=== PATIENT | female | born 1970 | race Caucasian/White ===

== ENCOUNTER → 2016-07-08 | Outpatient (CLI) | payer OTHER ==
[2016-07-08 10:42] LABS: Basophils % (A) 1 %; CH 31.6; Eosinophils # (A) 0.2 k/uL (0-0.7); Eosinophils % (A) 4 %; HCT 41.8 % (34.0-46.0); HDW 2.17; HGB 13.7 gm/dL (11.4-16.0); Luc # (Auto) 0.15; Luc % (Auto) 3; Lymphocytes # (A) 1.2 k/uL (1.0-4.8); Lymphocytes % (A) 24 %; MCH 31.6 pg (25.0-35.0); MCHC 32.9 g/dL (31.0-37.0); MCV 96.1 fL (80.0-100.0); Mean Platelet Volume 7.7; Monocytes # (A) 0.3 k/uL (0-1.0); Monocytes % (A) 6 %; Neutrophils # (A) 3.2 k/uL (1.3-7.7); Neutrophils % (A) 62 %; RBC 4.35 m/uL (3.80-5.40); RDW 13.2 % (11.5-15.5); WBC 5.1 k/uL (3.8-10.6); WBC (Perox) 5.55
[2016-07-08 11:19] LABS: Appearance,Urine Clear (Clear); Bilirubin,Urine Negative (Negative); Glucose,Urine (UA) Negative (Negative); Ketones,Urine 1+ (Negative); Leukocyte Esterase,Urine Negative (Negative); Nitrite,Urine Negative (Negative); Protein,Urine Negative (Negative); Specific Gravity,Urine 1.016 (1.001-1.035); UA Billing (MACRO vs. MICRO) CHEM; Urobilinogen,Urine <2.0 mg/dL (<2.0)
[2016-07-08 11:29] LABS: ALT 32 U/L (9-52); AST 25 U/L (14-36); Anion Gap 10 mmol/L; Blood Urea Nitrogen 13 mg/dL (7-17); Carbon Dioxide 25 mmol/L (22-30); Chloride 105 mmol/L (98-107); Cholesterol 207 mg/dL (<200); Follicle Stimulating Hormone 3.4 mIU/mL; Glucose 84 mg/dL (74-99); HDL Cholesterol 65 mg/dL (40-60); Non-African American GFR(MDRD) >60 (>60 ml/min/1.73 sqM); Potassium 4.2 mmol/L (3.5-5.1); Sodium 140 mmol/L (137-145); Triglycerides 59 mg/dL (<150)
[2016-07-08 11:45] LABS: Estradiol 114 pg/mL
== END | disposition home or self-care (01) ==
LOC: LABWHC1 09:10
PROVIDERS: ATTEND Family Medicine
DX: Z01.818 Encounter for other preprocedural examination (principal); N91.2 Amenorrhea, unspecified; E78.5 Hyperlipidemia, unspecified; J30.9 Allergic rhinitis, unspecified
CPT/HCPCS: 36415; 80048; 80061; 81003; 82306; 82670; 83001; 84450; 84460; 85025

== ENCOUNTER → 2016-12-26 | Outpatient (CLI) | payer OTHER ==
--- NOTE | 2016-12-29 11:07 | MM ---
Reason for exam: history of breast augmentation, asymptomatic. Last mammogram was performed 1 year and 5 months ago. History: Family history of breast cancer in 2 maternal cousins at age 48. Saline implants in both breasts, February 2006. Took hormonal contraceptives for 8 years beginning at age 16. Physical Findings: A clinical breast exam by your physician is recommended on an annual basis and results should be correlated with mammographic findings. MG Screening Mammo Implant/CAD Bilateral CC, MLO, and ID view(s) were taken. Prior study comparison: August 06, 2015, bilateral MG screening mammo implant/CAD. May 30, 2014, bilateral MG diagnostic mammo w CAD SYDNEE. May 12, 2013, CAD bilateral diagnostic mammogram. There are scattered fibroglandular densities. No significant changes when compared with prior studies. ASSESSMENT: Benign, BI-RAD 2 RECOMMENDATION: Routine screening mammogram of both breasts in 1 year.
== END | disposition home or self-care (01) ==
LOC: RADMAMWWP 12:44
PROVIDERS: ATTEND Obstetrics & Gynecology
DX: Z12.31 Encounter for screening mammogram for malignant neoplasm of breast (principal)

== ENCOUNTER → 2017-11-30 | Outpatient (CLI) | payer OTHER | END | disposition home or self-care (01) | LOC: LABWHC1 13:15 | PROVIDERS: ATTEND Obstetrics & Gynecology | DX: N91.2 Amenorrhea, unspecified (principal) | CPT/HCPCS: 36415; 82670; 83001; 83002; 84146 ==

== ENCOUNTER → 2018-05-07 | Outpatient (CLI) | payer OTHER ==
--- NOTE | 2018-05-13 16:40 | MM ---
Reason for exam: screening (asymptomatic). Last mammogram was performed 1 year and 4 months ago. History: Family history of breast cancer in 2 maternal cousins at age 48. Saline implants in both breasts, February 2006. Took hormonal contraceptives for 8 years beginning at age 16. MG 3D Screen Mammo Imp/Cad Bilateral CC, MLO, and ID view(s) were taken. Prior study comparison: December 26, 2016, bilateral MG screening mammo implant/CAD. August 06, 2015, bilateral MG screening mammo implant/CAD. The breast tissue is heterogeneously dense. This may lower the sensitivity of mammography. There is benign left breast calcifications. No discrete abnormality. Bilateral symmetrical implants redemonstrated. ASSESSMENT: Benign, BI-RAD 2 RECOMMENDATION: Routine screening mammogram of both breasts in 1 year.
== END | disposition home or self-care (01) ==
LOC: RADMAMWWP 12:43
PROVIDERS: ATTEND Obstetrics & Gynecology
DX: Z12.31 Encounter for screening mammogram for malignant neoplasm of breast (principal)
CPT/HCPCS: 77063; 77067

== ENCOUNTER 2018-06-03 16:49 | Inpatient (IN) | payer OTHER ==
[2018-06-03] MEDS ORDERED: IBUPROFEN 600 MG TAB PO STA (19:07)
[2018-06-03] MEDS ORDERED: SODIUM CHLORIDE 0.9% 1,000 ML IV ONE (19:07)
[2018-06-03] MEDS ORDERED: ACETAMINOPHEN TAB 500 MG TAB PO STA (19:07)
--- NOTE | 2018-06-03 19:10 | ED ---
Fever HPI - General Chief Complaint: Fever Stated Complaint: fever Time Seen by Provider: 06/03/18 18:51 Source: patient, RN notes reviewed, old records reviewed Mode of arrival: ambulatory Limitations: no limitations - History of Present Illness Initial Comments: Patient is a 47-year-old female presents emergency Department stay for evaluation of persistent fevers. She has had intermittent upper respiratory symptoms including cough and congestion since January. She has been on multiple rounds of antibiotics. She was initially on doxycycline in January, rounds of steroids. She recently finished a 20 day course of Levaquin. She finished his antibiotics 3 days ago. She presents today again with fevers and reports that her cough has improved. 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 She states that she has followed up with Dr. Taylor regards to her chronic cough. She is otherwise healthy. Nonsmoker. - Related Data Home Medications Medication Instructions Recorded Confirmed Acetaminophen [Tylenol Extra 500 mg PO Q6HR PRN 06/03/18 06/03/18 Strength] Omeprazole 20 mg PO DAILY 06/03/18 06/03/18 predniSONE 5 mg PO DAILY 06/03/18 06/03/18 Allergies Allergy/AdvReac Type Severity Reaction Status Date / Time cephalexin [From Keflex] Allergy Rash/Hives Verified 06/03/18 19:06 codeine AdvReac Vomiting Verified 06/03/18 19:06 Review of Systems ROS Statement: Those systems with pertinent positive or pertinent negative responses have been documented in the HPI. ROS Other: All systems not noted in ROS Statement are negative. Past Medical History Additional Past Medical History / Comment(s): migraines History of Any Multi-Drug Resistant Organisms: None Reported Past Surgical History: Tonsillectomy Additional Past Surgical History / Comment(s): bladder sling, breast implants Past Psychological History: No Psychological Hx Reported Smoking Status: Never smoker Past Alcohol Use History: Occasional Past Drug Use History: None Reported General Exam - General Exam Comments Initial Comments: 47-year-old female. Alert and oriented 3. Patient appears in no significant distress. Limitations: no limitations General appearance: alert, in no apparent distress Head exam: Present: atraumatic, normocephalic, normal inspection Eye exam: Present: normal appearance, PERRL, EOMI. Absent: scleral icterus, conjunctival injection, periorbital swelling ENT exam: Present: normal exam, mucous membranes moist Neck exam: Present: normal inspection. Absent: tenderness, meningismus, lymphadenopathy Respiratory exam: Present: normal lung sounds bilaterally. Absent: respiratory distress, wheezes, rales, rhonchi, stridor Cardiovascular Exam: Present: regular rate, normal rhythm, normal heart sounds. Absent: systolic murmur, diastolic murmur, rubs, gallop, clicks GI/Abdominal exam: Present: soft, normal bowel sounds. Absent: distended, tenderness, guarding, rebound, rigid Extremities exam: Present: normal inspection, full ROM, normal capillary refill. Absent: tenderness, pedal edema, joint swelling, calf tenderness Back exam: Present: normal inspection Neurological exam: Present: alert, oriented X3, CN II-XII intact Psychiatric exam: Present: normal affect, normal mood Skin exam: Present: warm, dry, intact, normal color. Absent: rash Course Vital Signs 06/03/18 06/03/18 06/03/18 17:21 19:45 20:55 Temperature 100 F H 101.8 F H 100.2 F H Pulse Rate 118 H 103 H 103 H Respiratory 16 18 18 Rate Blood Pressure 139/86 118/90 102/58 O2 Sat by Pulse 97 97 93 L Oximetry 06/03/18 21:56 Temperature 100.1 F H Pulse Rate 92 Respiratory 18 Rate Blood Pressure 125/68 O2 Sat by Pulse 94 L Oximetry Medical Decision Making - Medical Decision Making Patient is a 47-year-old female percent saturation arms today with prolonged fever since January. Patient has been on multiple rounds antibiotics including doxycycline and Levaquin. At this time Patient has normal chest x-ray and negative influenza testing. Lab work was reviewed. She has been on steroids and her she does have some leukocytosis noted white blood cell count 35,000. I do not know patient's leukocytosis is related to steroids or possibility of infection. She had a fever 101.2. She finished Levaquin 3 days ago this was given to her by Dr. Taylor. At this time Patient will be admitted for workup. Infectious disease. Diamond. Discussed the case with Dr. Duran. - Lab Data Result diagrams: 06/03/18 19:37 06/03/18 19:37 Lab Results 06/03/18 06/03/18 06/03/18 Range/Units 19:37 19:37 19:37 WBC 35.7 H (3.8-10.6) k/uL RBC 4.59 (3.80-5.40) m/uL Hgb 14.2 (11.4-16.0) gm/dL Hct 43.0 (34.0-46.0) % MCV 93.5 (80.0-100.0) fL MCH 30.9 (25.0-35.0) pg MCHC 33.1 (31.0-37.0) g/dL RDW 13.8 (11.5-15.5) % Plt Count 329 (150-450) k/uL Neutrophils % (Manual) 78 % Band Neutrophils % 5 % Lymphocytes % (Manual) 10 % Monocytes % (Manual) 8 % Eosinophils % (Manual) 1 % Neutrophils # (Manual) 29.60 H (1.3-7.7) k/uL Lymphocytes # (Manual) 3.57 (1.0-4.8) k/uL Monocytes # (Manual) 2.86 H (0-1.0) k/uL Eosinophils # (Manual) 0.36 (0-0.7) k/uL Nucleated RBCs 0 (0-0) /100 WBC Manual Slide Review Performed Toxic Granulation Present Toxic Vacuolation Present D-Dimer (<0.60) mg/L FEU Sodium 137 (137-145) mmol/L Potassium 4.4 (3.5-5.1) mmol/L Chloride 100 (98-107) mmol/L Carbon Dioxide 25 (22-30) mmol/L Anion Gap 12 mmol/L BUN 13 (7-17) mg/dL Creatinine 0.68 (0.52-1.04) mg/dL Est GFR (CKD-EPI)AfAm >90 (>60 ml/min/1.73 sqM) Est GFR (CKD-EPI)NonAf >90 (>60 ml/min/1.73 sqM) Glucose 98 (74-99) mg/dL Plasma Lactic Acid Renzo (0.7-2.0) mmol/L Calcium 9.6 (8.4-10.2) mg/dL Total Bilirubin 1.3 (0.2-1.3) mg/dL AST 27 (14-36) U/L ALT 29 (9-52) U/L Alkaline Phosphatase 90 (38-126) U/L Total Protein 7.8 (6.3-8.2) g/dL Albumin 4.6 (3.5-5.0) g/dL Urine Color Urine Appearance (Clear) Urine pH (5.0-8.0) Ur Specific [place] (1.001-1.035) Urine Protein (Negative) Urine Glucose (UA) (Negative) Urine Ketones (Negative) Urine Blood (Negative) Urine Nitrite (Negative) Urine Bilirubin (Negative) Urine Urobilinogen (<2.0) mg/dL Ur Leukocyte Esterase (Negative) Urine RBC (0-5) /hpf Ur Squamous Epith Cells (0-4) /hpf Urine Mucus (None) /hpf Influenza Type A RNA Not Detected (Not Detectd) Influenza Type B (PCR) Not Detected (Not Detectd) RSV (PCR) (Negative) 06/03/18 06/03/18 06/03/18 Range/Units 19:37 19:37 19:37 WBC (3.8-10.6) k/uL RBC (3.80-5.40) m/uL Hgb (11.4-16.0) gm/dL Hct (34.0-46.0) % MCV (80.0-100.0) fL MCH (25.0-35.0) pg MCHC (31.0-37.0) g/dL RDW (11.5-15.5) % Plt Count (150-450) k/uL Neutrophils % (Manual) % Band Neutrophils % % Lymphocytes % (Manual) % Monocytes % (Manual) % Eosinophils % (Manual) % Neutrophils # (Manual) (1.3-7.7) k/uL Lymphocytes # (Manual) (1.0-4.8) k/uL Monocytes # (Manual) (0-1.0) k/uL Eosinophils # (Manual) (0-0.7) k/uL Nucleated RBCs (0-0) /100 WBC Manual Slide Review Toxic Granulation Toxic Vacuolation D-Dimer 0.20 (<0.60) mg/L FEU Sodium (137-145) mmol/L Potassium (3.5-5.1) mmol/L Chloride (98-107) mmol/L Carbon Dioxide (22-30) mmol/L Anion Gap mmol/L BUN (7-17) mg/dL Creatinine (0.52-1.04) mg/dL Est GFR (CKD-EPI)AfAm (>60 ml/min/1.73 sqM) Est GFR (CKD-EPI)NonAf (>60 ml/min/1.73 sqM) Glucose (74-99) mg/dL Plasma Lactic Acid Renzo 1.7 (0.7-2.0) mmol/L Calcium (8.4-10.2) mg/dL Total Bilirubin (0.2-1.3) mg/dL AST (14-36) U/L ALT (9-52) U/L Alkaline Phosphatase (38-126) U/L Total Protein (6.3-8.2) g/dL Albumin (3.5-5.0) g/dL Urine Color Light Yellow Urine Appearance Cloudy H (Clear) Urine pH 8.0 (5.0-8.0) Ur Specific [place] 1.013 (1.001-1.035) Urine Protein Negative (Negative) Urine Glucose (UA) Negative (Negative) Urine Ketones Negative (Negative) Urine Blood Negative (Negative) Urine Nitrite Negative (Negative) Urine Bilirubin Negative (Negative) Urine Urobilinogen <2.0 (<2.0) mg/dL Ur Leukocyte Esterase Negative (Negative) Urine RBC 1 (0-5) /hpf Ur Squamous Epith Cells <1 (0-4) /hpf Urine Mucus Rare H (None) /hpf Influenza Type A RNA (Not Detectd) Influenza Type B (PCR) (Not Detectd) RSV (PCR) (Negative) 06/03/18 Range/Units 20:15 WBC (3.8-10.6) k/uL RBC (3.80-5.40) m/uL Hgb (11.4-16.0) gm/dL Hct (34.0-46.0) % MCV (80.0-100.0) fL MCH (25.0-35.0) pg MCHC (31.0-37.0) g/dL RDW (11.5-15.5) % Plt Count (150-450) k/uL Neutrophils % (Manual) % Band Neutrophils % % Lymphocytes % (Manual) % Monocytes % (Manual) % Eosinophils % (Manual) % Neutrophils # (Manual) (1.3-7.7) k/uL Lymphocytes # (Manual) (1.0-4.8) k/uL Monocytes # (Manual) (0-1.0) k/uL Eosinophils # (Manual) (0-0.7) k/uL Nucleated RBCs (0-0) /100 WBC Manual Slide Review Toxic Granulation Toxic Vacuolation D-Dimer (<0.60) mg/L FEU Sodium (137-145) mmol/L Potassium (3.5-5.1) mmol/L Chloride (98-107) mmol/L Carbon Dioxide (22-30) mmol/L Anion Gap mmol/L BUN (7-17) mg/dL Creatinine (0.52-1.04) mg/dL Est GFR (CKD-EPI)AfAm (>60 ml/min/1.73 sqM) Est GFR (CKD-EPI)NonAf (>60 ml/min/1.73 sqM) Glucose (74-99) mg/dL Plasma Lactic Acid Renzo (0.7-2.0) mmol/L Calcium (8.4-10.2) mg/dL Total Bilirubin (0.2-1.3) mg/dL AST (14-36) U/L ALT (9-52) U/L Alkaline Phosphatase (38-126) U/L Total Protein (6.3-8.2) g/dL Albumin (3.5-5.0) g/dL Urine Color Urine Appearance (Clear) Urine pH (5.0-8.0) Ur Specific [place] (1.001-1.035) Urine Protein (Negative) Urine Glucose (UA) (Negative) Urine Ketones (Negative) Urine Blood (Negative) Urine Nitrite (Negative) Urine Bilirubin (Negative) Urine Urobilinogen (<2.0) mg/dL Ur Leukocyte Esterase (Negative) Urine RBC (0-5) /hpf Ur Squamous Epith Cells (0-4) /hpf Urine Mucus (None) /hpf Influenza Type A RNA (Not Detectd) Influenza Type B (PCR) (Not Detectd) RSV (PCR) Negative (Negative) Disposition Clinical Impression: Fever, unknown origin, Leukocytosis, Fatigue Disposition: ADMITTED IP TO THIS [facility] Condition: Stable Is patient prescribed a controlled substance at d/c from ED?: No Referrals: Neftaly Cesar DO [Primary Care Provider] - 1-2 days Time of Disposition: 21:59
[2018-06-03 19:56] LABS: HGB 14.2 gm/dL (11.4-16.0); MCH 30.9 pg (25.0-35.0); MCHC 33.1 g/dL (31.0-37.0); MCV 93.5 fL (80.0-100.0); Mean Platelet Volume 7.8; Platelet Count 329 k/uL (150-450); RBC 4.59 m/uL (3.80-5.40); RDW 13.8 % (11.5-15.5); WBC 35.7 k/uL (3.8-10.6)
[2018-06-03 20:06] LABS: Appearance,Urine Cloudy (Clear); Bilirubin,Urine Negative (Negative); Blood,Urine Negative (Negative); Color,Urine Light Yellow; Glucose,Urine (UA) Negative (Negative); Ketones,Urine Negative (Negative); Leukocyte Esterase,Urine Negative (Negative); Mucus,Urine Rare /hpf; Nitrite,Urine Negative (Negative); Protein,Urine Negative (Negative); RBC,Urine 1 /hpf (0-5); Specific Gravity,Urine 1.013 (1.001-1.035); Squamous Epithelial Cell,Urine <1 /hpf (0-4); Urobilinogen,Urine <2.0 mg/dL (<2.0)
[2018-06-03 20:07] LABS: ALT 29 U/L (9-52); AST 27 U/L (14-36); Albumin 4.6 g/dL (3.5-5.0); Alkaline Phosphatase 90 U/L (38-126); Anion Gap 12 mmol/L; Blood Urea Nitrogen 13 mg/dL (7-17); Calcium 9.6 mg/dL (8.4-10.2); Carbon Dioxide 25 mmol/L (22-30); Chloride 100 mmol/L (98-107); Glucose 98 mg/dL (74-99); Potassium 4.4 mmol/L (3.5-5.1); Sodium 137 mmol/L (137-145); Total Bilirubin 1.3 mg/dL (0.2-1.3); Total Protein 7.8 g/dL (6.3-8.2)
[2018-06-03 20:17] LABS: Band Neutrophils % 5 %; Eosinophils # (M) 0.36 k/uL (0-0.7); Lymphocytes # (M) 3.57 k/uL (1.0-4.8); Monocytes # (M) 2.86 k/uL (0-1.0); Neutrophils % (M) 78 %; Nucleated Red Blood Cells 0 /100 WBC (0-0); Total Cells Counted 200; Toxic Granulation Present
[2018-06-03 20:18] LABS: Toxic Vacuolation Present
--- NOTE | 2018-06-03 20:22 | XR ---
EXAMINATION TYPE: XR chest 2V DATE OF EXAM: 06/03/2018 COMPARISON: NONE HISTORY: Fever TECHNIQUE: Frontal and lateral views of the chest are obtained. FINDINGS: Heart and mediastinum are normal. Lungs are clear. Diaphragm is normal. Bony thorax appear s normal. IMPRESSION: Normal chest.
[2018-06-03] MEDS ORDERED: PIPERACILLIN-TAZOBACTAM 3.375 GM in SODIUM CHLORIDE 0.9% 100 ML IVPB STA (21:38)
[2018-06-03] MEDS: SODIUM CHLORIDE 0.9% 1,000 ML IV SCH (21:55)
[2018-06-03] MEDS ORDERED: oxyCODONE-APAP 5-325MG 1 EACH TAB PO PRN (21:59)
[2018-06-03] MEDS ORDERED: KETOROLAC 30 MG/ML 1 ML VIAL IVP PRN (21:59)
[2018-06-03] MEDS ORDERED: NALOXONE 0.4 MG/ML 1 ML VIAL IV PRN (21:59)
[2018-06-03] MEDS ORDERED: ACETAMINOPHEN TAB 325 MG TAB PO PRN (21:59)
[2018-06-03] MEDS ORDERED: ONDANSETRON 4 MG/2 ML VIAL IVP PRN (21:59)
[2018-06-03] MEDS ORDERED: IBUPROFEN 400 MG TAB PO PRN (21:59)
[2018-06-04] MEDS ORDERED: PIPERACILLIN-TAZOBACTAM 3.375 GM in SODIUM CHLORIDE 0.9% 100 ML IVPB SCH (06:00)
[2018-06-04 07:38] LABS: C Reactive Protein 151.6 mg/L (<10.0)
--- NOTE | 2018-06-04 08:12 | HP ---
HISTORY AND PHYSICAL DATE OF SERVICE: 06/04/2018 CHIEF COMPLAINT: Fever. HISTORY OF PRESENT ILLNESS: This 47-year-old woman with a past medical history of migraines, tonsillectomy, bladder sling, breast implants being followed by Dr. Cesar in the outpatient setting, was complaining of fever for the past several weeks. Initially the patient had fever, night sweats. The patient was evaluated by Dr. Cesar and subsequently Dr. Jesus. Patient had just recently completed a course of Levaquin about 3 weeks and 20 days of steroids. The patient is feeling better on antibiotics and steroids, but subsequently initially the patient also had some cough, but after stopping the antibiotics and Levaquin. The patient had fever, which is intermittent in character and the patient came to [facility] and admitted for further evaluation. White count is elevated possibly secondary to steroids at this time. The patient initially had doxycycline. There is no history of any ingestion of unusual food or any travel in contact with pets or any sick individuals at this time. The patient did go to [place] [facility] Currently the monocytes are 2.86 and neutrophils at 29.6. There is no history of any headache , loss of consciousness or seizures at this time. Influenza and RSV is negative. A chest x- ray was also done which showed no acute abnormality. The patient also complaining of significant night sweats also. Initially, the patient had right sided chest pain also. PAST MEDICAL HISTORY: History of migraine, history of tonsillectomy, bladder sling. MEDICATIONS: Home medications are: 1. Prednisone 5 mg daily. 2. Omeprazole 20 mg daily. 3. Tylenol 500 mg q.6 p.r.n. ALLERGIES: Allergies are KEFLEX and CODEINE. FAMILY HISTORY: History of asthma and COPD. 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 Occasional alcohol. No history of smoking. REVIEW OF SYSTEMS: ENT: No diminished hearing or diminished vision. CARDIOVASCULAR SYSTEM: No angina. RESPIRATORY SYSTEM: As mentioned earlier. GI: No nausea or vomiting. : No dysuria. NERVOUS SYSTEM: No numbness or weakness. ALLERGY/IMMUNOLOGY: No history of asthma. MUSCULOSKELETAL: As mentioned earlier. HEMATOLOGY/ONCOLOGY: No history anemia. ENDOCRINE: No history of diabetes or hypothyroidism. CONSTITUTIONAL: As mentioned earlier. DERMATOLOGY: Negative. RHEUMATOLOGY: Negative. PSYCHIATRY: As mentioned earlier. PHYSICAL EXAMINATION: Patient is alert and oriented x3. Pulse is 93, blood pressure 121/74, respiration 18, temperature 98.8, T-max 100.2, pulse ox 94% on room air. HEENT: Conjunctivae normal. Oral mucosa moist. Neck is no jugular venous distention. No carotid bruit. No lymph node enlargement. CARDIOVASCULAR: S1, S2 muffled. No S3, no S4. RESPIRATORY: Breath sounds diminished at bases. A few scattered rhonchi. No crackles. ABDOMEN: Soft, nontender. No mass palpable. No ascites. Bowel sounds present. LEGS: No edema. No swelling. NERVOUS SYSTEM: Higher functions as mentioned earlier. Moves all 4 limbs. No focal motor deficits. LYMPHATICS: No lymphadenopathy of the neck, axillae or groin. SKIN: No ulcer, rash or bleeding. JOINTS: No active deforming arthropathy. LABS: Labs on admission is WBC 35.7, neutrophils 29.6. UA noted. ASSESSMENT: 1. Fever of unknown origin for evaluation. 2. Increased WBC, possibly secondary to steroids. 3. History of migraines. 4. History of bladder sling. 5. FULL CODE. RECOMMENDATIONS AND DISCUSSION: This 47-year-old woman presented with multiple complex medical issues, we will monitor the patient closely. Obtain the blood cultures. We will consult Pulmonary and Infectious Disease. Otherwise, I would also continue to monitor. A detailed workup for the fever protocol will be ordered. See orders for details. Further recommendations to follow. Prognosis guarded. Discussed with the family at length. A copy of dictation forwarded to Dr. Cesar who is the primary physician. MMMAE / RALPHN: [id number] / MTDD
[2018-06-04] MEDS ORDERED: NON-FORMULARY DRUG (Omeprazole [Omeprazole] 20 MG) PO SCH (09:00)
[2018-06-04] MEDS ORDERED: PANTOPRAZOLE 40 MG/10 ML VIAL IV SCH (09:00)
[2018-06-04] MEDS: IOPAMIDOL-300 CONTRAST 30 ML VIAL (ORAL USE) PO PRN ×2 (10:00→11:07)
[2018-06-04 10:24] LABS: Appearance,Urine Clear (Clear); Bilirubin,Urine Negative (Negative); Blood,Urine Negative (Negative); Color,Urine Light Yellow; Glucose,Urine (UA) Negative (Negative); Ketones,Urine Negative (Negative); Leukocyte Esterase,Urine Negative (Negative); Nitrite,Urine Negative (Negative); Protein,Urine Negative (Negative); Specific Gravity,Urine 1.006 (1.001-1.035); Urobilinogen,Urine <2.0 mg/dL (<2.0)
[2018-06-04] MEDS: SODIUM CHLORIDE 0.9% 1,000 ML IV SCH ×2 (11:06→21:47)
[2018-06-04 11:15] LABS: Rheumatoid Factor 11 IU/mL (0-15)
--- NOTE | 2018-06-04 12:24 | P.CONS ---
History of Present Illness - Reason for Consult Consult date: 06/04/18 Fever unknown, multiple antibiotics - History of Present Illness This is a 47-year-old female gives history of starting a and January 2018 at which time she had a dry nonproductive cough body aches and joint aches and fever. There was concern for pneumonia although she states the x-ray was negative and she was placed on doxycycline which she completed at that time and her symptoms resolved. Since then, she has had a fever about every other week and takes Motrin and Tylenol for the fever and it usually resolves within a day. If she does not take Motrin or Tylenol the fever persists. She recently saw Dr. Aguilar about 3 weeks ago and was placed on Levaquin which she finished and then developed 3-4 days after symptoms returned. She was also on a steroid taper for 20 days. 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 She did travel to [place] last June but otherwise no significant travel. They have a dog and 2 cats in the home. She gardens in the summer otherwise no unusual hobbies. No other animal exposures. She denies any sick contacts. Patient came into the clinic in [facility] emergency center where she was found to have a temperature of 101.8 and white count 35.7, creatinine 0.68. ESR 13, d-dimer 0.2, C-reactive protein 151.6. Urinalysis was negative for infection, influenza testing negative, RSV negative , chest x-ray and normal. In the ER, patient was given Tylenol, Motrin, 1 L of IV fluids and started on Zosyn and [facility]. Patient states that she has been feeling better today from yesterday and she has been afebrile since 2300 last night. The following tests are pending: Echocardiogram , CT of the brain, CT of the chest abdomen and pelvis, JOSE, P-ANCA and C-ANCA, Lyme, rheumatoid factor, urine culture. Blood culture has status receded. Sputum cultures are obtained due to lack of sputum production. Review of Systems All systems: negative Constitutional: Reports chills, Reports fatigue, Reports fever, Reports malaise , Reports poor appetite, Reports sweats, Reports weakness Eyes: denies blurred vision, denies pain Ears, nose, mouth and throat: Denies dysphagia, Denies headache, Denies hoarseness, Denies sore throat, Denies vertigo Cardiovascular: Denies chest pain, Denies decreased exercise tolerance, Denies dyspnea on exertion, Denies edema, Denies leg edema, Denies shortness of breath , Denies syncope Respiratory: Reports cough, Denies cough with sputum, Denies dyspnea, Denies excessive sputum, Denies hemoptysis, Denies home oxygen, Denies wheezing Gastrointestinal: Denies abdominal pain, Denies diarrhea, Denies loss of appetite, Denies melena, Denies nausea, Denies vomiting Genitourinary: Denies dysuria, Denies hematuria, Denies urgency, Denies urinary frequency Musculoskeletal: Reports myalgias, Denies frequent falls, Denies gait dysfunction, Denies hot joints, Denies muscle weakness, Denies neck stiffness Integumentary: Denies boils, Denies foot/leg ulcers, Denies lesions, Denies pruritus, Denies rash, Denies sores, Denies wounds Neurological: Denies aphasia, Denies change in mentation, Denies change in speech, Denies double vision, Denies gait dysfunction, Denies head injury, Denies headaches, Denies numbness, Denies seizures, Denies vertigo, Denies weakness Psychiatric: Denies anxiety, Denies depression Endocrine: Denies fatigue, Denies weight change Past Medical History Additional Past Medical History / Comment(s): migraines History of Any Multi-Drug Resistant Organisms: None Reported Past Surgical History: Tonsillectomy Additional Past Surgical History / Comment(s): bladder sling, breast implants Past Psychological History: No Psychological Hx Reported Smoking Status: Never smoker Past Alcohol Use History: Occasional Additional Past Alcohol Use History / Comment(s): Patient is a lifelong nonsmoker, no illicit drug use, occasional alcohol use. Patient was at home with her . 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 She denies any recent travel but did go to [place] last June. There is a dog and 2 cats in the home. She enjoys gardening. Past Drug Use History: None Reported - Past Family History Mother Family Medical History: Asthma, COPD Medications and Allergies Home Medications Medication Instructions Recorded Confirmed Type Acetaminophen [Tylenol Extra 500 mg PO Q6HR PRN 06/03/18 06/03/18 History Strength] Omeprazole 20 mg PO DAILY 06/03/18 06/03/18 History predniSONE 5 mg PO DAILY 06/03/18 06/03/18 History Allergies Allergy/AdvReac Type Severity Reaction Status Date / Time cephalexin [From Keflex] Allergy Rash/Hives Verified 06/03/18 19:06 codeine AdvReac Vomiting Verified 06/03/18 19:06 Physical Exam Vitals: Vital Signs Temp Pulse Pulse Resp BP BP Pulse Ox 06/04/18 07:00 98.7 F 83 16 101/67 92 L 06/04/18 03:30 16 06/03/18 23:55 18 06/03/18 23:40 98.8 F 93 18 121/74 94 L 06/03/18 23:04 98.6 F 88 18 114/68 96 06/03/18 21:56 100.1 F H 92 18 125/68 94 L 06/03/18 20:55 100.2 F H 103 H 18 102/58 93 L 06/03/18 19:45 101.8 F H 103 H 18 118/90 97 06/03/18 17:21 100 F H 118 H 16 139/86 97 Intake and Output 06/03/18 06/04/18 06/04/18 22:59 06:59 14:59 Other: Voiding Method Toilet Toilet Weight 61.235 kg Gen: This is a 47-year-old female. She is resting in bed appears to be comfortable and in no acute distress. HEENT: Head is atraumatic, normocephalic. Pupils equal, round. Sclerae is anicteric. Conjunctiva pink. Mucous members of the mouth are moist. Oropharyngeal shows no erythema or edema. NECK: Supple. No JVD. No lymphadenopathy. No thyromegaly. LUNGS: Clear to auscultation. No wheezes or rhonchi. No intercostal retractions. HEART: Regular rate and rhythm. No murmur. ABDOMEN: Soft. Bowel sounds are present. No masses. No tenderness. EXTREMITIES: No pedal edema. No calf tenderness. Dorsalis pedis is +2 bilaterally. No rashes. NEUROLOGICAL: Patient is awake, alert and oriented x3. Cranial nerves 2 through 12 are grossly intact. Results Results: Laboratory Results WBC 35.7 k/uL (3.8-10.6) H 06/03/18 19:37 RBC 4.59 m/uL (3.80-5.40) 06/03/18 19:37 Hgb 14.2 gm/dL (11.4-16.0) 06/03/18 19:37 Hct 43.0 % (34.0-46.0) 06/03/18 19:37 MCV 93.5 fL (80.0-100.0) 06/03/18 19:37 MCH 30.9 pg (25.0-35.0) 06/03/18 19:37 MCHC 33.1 g/dL (31.0-37.0) 06/03/18 19:37 RDW 13.8 % (11.5-15.5) 06/03/18 19:37 Plt Count 329 k/uL (150-450) 06/03/18 19:37 Neutrophils % (Manual) 78 % 06/03/18 19:37 Band Neutrophils % 5 % 06/03/18 19:37 Lymphocytes % (Manual) 10 % 06/03/18 19:37 Monocytes % (Manual) 8 % 06/03/18 19:37 Eosinophils % (Manual) 1 % 06/03/18 19:37 Neutrophils # (Manual) 29.60 k/uL (1.3-7.7) H 06/03/18 19:37 Lymphocytes # (Manual) 3.57 k/uL (1.0-4.8) 06/03/18 19:37 Monocytes # (Manual) 2.86 k/uL (0-1.0) H 06/03/18 19:37 Eosinophils # (Manual) 0.36 k/uL (0-0.7) 06/03/18 19:37 Nucleated RBCs 0 /100 WBC (0-0) 06/03/18 19:37 Manual Slide Review Performed 06/03/18 19:37 Toxic Granulation Present 06/03/18 19:37 Toxic Vacuolation Present 06/03/18 19:37 ESR 13 mm/hr (0-20) 06/04/18 06:55 D-Dimer 0.20 mg/L FEU (<0.60) 06/03/18 19:37 Sodium 137 mmol/L (137-145) 06/03/18 19:37 Potassium 4.4 mmol/L (3.5-5.1) 06/03/18 19:37 Chloride 100 mmol/L (98-107) 06/03/18 19:37 Carbon Dioxide 25 mmol/L (22-30) 06/03/18 19:37 Anion Gap 12 mmol/L 06/03/18 19:37 BUN 13 mg/dL (7-17) 06/03/18 19:37 Creatinine 0.68 mg/dL (0.52-1.04) 06/03/18 19:37 Est GFR (CKD-EPI)AfAm >90 (>60 ml/min/1.73 sqM) 06/03/18 19:37 Est GFR (CKD-EPI)NonAf >90 (>60 ml/min/1.73 sqM) 06/03/18 19:37 Glucose 98 mg/dL (74-99) 06/03/18 19:37 Plasma Lactic Acid Renzo 1.0 mmol/L (0.7-2.0) 06/04/18 06:55 Calcium 9.6 mg/dL (8.4-10.2) 06/03/18 19:37 Total Bilirubin 1.3 mg/dL (0.2-1.3) 06/03/18 19:37 AST 27 U/L (14-36) 06/03/18 19:37 ALT 29 U/L (9-52) 06/03/18 19:37 Alkaline Phosphatase 90 U/L (38-126) 06/03/18 19:37 C-Reactive Protein 151.6 mg/L (<10.0) H 06/04/18 06:55 Total Protein 7.8 g/dL (6.3-8.2) 06/03/18 19:37 Albumin 4.6 g/dL (3.5-5.0) 06/03/18 19:37 Amylase 49 U/L (30-110) 06/04/18 06:55 Lipase 170 U/L (23-300) 06/04/18 06:55 Urine Color Light Yellow 06/04/18 05:00 Urine Appearance Clear (Clear) 06/04/18 05:00 Urine pH 7.0 (5.0-8.0) 06/04/18 05:00 Ur Specific Clive 1.006 (1.001-1.035) 06/04/18 05:00 Urine Protein Negative (Negative) 06/04/18 05:00 Urine Glucose (UA) Negative (Negative) 06/04/18 05:00 Urine Ketones Negative (Negative) 06/04/18 05:00 Urine Blood Negative (Negative) 06/04/18 05:00 Urine Nitrite Negative (Negative) 06/04/18 05:00 Urine Bilirubin Negative (Negative) 06/04/18 05:00 Urine Urobilinogen <2.0 mg/dL (<2.0) 06/04/18 05:00 Ur Leukocyte Esterase Negative (Negative) 06/04/18 05:00 Urine RBC 1 /hpf (0-5) 06/03/18 19:37 Ur Squamous Epith Cells <1 /hpf (0-4) 06/03/18 19:37 Urine Mucus Rare /hpf (None) H 06/03/18 19:37 Rheumatoid Factor 11 IU/mL (0-15) 06/04/18 06:55 JOSE Screen NEGATIVE (NEGATIVE) 06/04/18 06:55 Influenza Type A RNA Not Detected (Not Detectd) 06/03/18 19:37 Influenza Type B (PCR) Not Detected (Not Detectd) 06/03/18 19:37 RSV (PCR) Negative (Negative) 06/03/18 20:15 CBC & Chem 7: 06/03/18 19:37 06/03/18 19:37 Labs: Abnormal Lab Results - Last 24 Hours (Table) 06/03/18 06/03/18 06/04/18 Range/Units 19:37 19:37 06:55 WBC 35.7 H (3.8-10.6) k/uL Neutrophils # (Manual) 29.60 H (1.3-7.7) k/uL Monocytes # (Manual) 2.86 H (0-1.0) k/uL C-Reactive Protein 151.6 H (<10.0) mg/L Urine Appearance Cloudy H (Clear) Urine Mucus Rare H (None) /hpf Assessment and Plan Plan: This is a 47-year-old female who presents to the hospital with fever of unclear etiology. Would recommend holding antibiotics until etiology has been determined. Continue supportive care. Testing is in process. Further recommendations as patient progresses. The above dictated assessment and findings were discussed with Dr. Hewitt. The impression and plan of care have been directed as dictated. Madison Posada nurse practitioner acting as scribe for Dr. Hewitt.
--- NOTE | 2018-06-04 12:26 | CT ---
EXAMINATION TYPE: CT brain wo con DATE OF EXAM: 06/04/2018 COMPARISON: None INDICATION: fever of unknown origin DLP: 995.7 mGycm, Automated exposure control for dose reduction was used. CONTRAST: None CT of the brain is performed utilizing 3 mm thick sections through the posterior fossa and 3 mm thick sections through the remaining calvarium. Study is performed within 24 hours of arrival to the hosp [facility]. No abnormal hyperdensity is present to suggest an acute intracranial hemorrhage. No mass lesion is evident. No acute infarcts are evident. Ventricles and sulci are appropriate for the patient age. Paranasal sinuses and mastoid air cells within the [id number] are clear. IMPRESSIONS: 1. Normal CT Brain
--- NOTE | 2018-06-04 12:37 | ECHOF ---
Referral Reason:fever MEASUREMENTS -------- HEIGHT: 160.0 cm WEIGHT: 61.2 kg BP: 121/74 RVIDd: 2.6 cm (< 3.3) IVSd: 0.8 cm (0.6 - 1.1) LVIDd: 3.9 cm (3.9 - 5.3) LVPWd: 1.0 cm (0.6 - 1.1) IVSs: 1.4 cm LVIDs: 2.4 cm LVPWs: 1.4 cm LA Diam: 3.1 cm (2.7 - 3.8) LAESV Index (A-L): 23.47 ml/m Ao Diam: 2.5 cm (2.0 - 3.7) AV Cusp: 1.8 cm (1.5 - 2.6) MV EXCURSION: 12.234 mm (> 18.000) MV EF SLOPE: 90 mm/s (70 - 150) EPSS: 0.4 cm MV E Blas: 0.73 m/s MV DecT: 229 ms MV A Blas: 0.62 m/s MV E/A Ratio: 1.19 FINDINGS -------- Sinus rhythm. This was a technically excellent study. The left ventricular size is normal. Left ventricular wall thickness is normal. Overall left vent ricular systolic function is normal with, an EF between 60 - 65 %. The right ventricle is normal in size. Normal LA size by volume 22+/-6 ml/m2. The right atrium is normal in size. The aortic valve is trileaflet and appears structurally normal. There is trace mitral regurgitation. Trace tricuspid regurgitation present. There is no pulmonic regurgitation present. The aortic root size is normal. Normal inferior vena cava with normal inspiratory collapse consistent with estimated right atrial pre ssure of 5 mmHg. There is no pericardial effusion. CONCLUSIONS -------- 1. Sinus rhythm. 2. This was a technically excellent study. 3. The left ventricular size is normal. 4. Left ventricular wall thickness is normal. 5. Overall left ventricular systolic function is normal with, an EF between 60 - 65 %. 6. The right ventricle is normal in size. 7. Normal LA size by volume 22+/-6 ml/m2. 8. The right atrium is normal in size. 9. The aortic valve is trileaflet and appears structurally normal. 10. There is trace mitral regurgitation. 11. Trace tricuspid regurgitation present. 12. There is no pulmonic regurgitation present. 13. The aortic root size is normal. 14. Normal inferior vena cava with normal inspiratory collapse consistent with estimated right atrial pressure of 5 mmHg. 15. There is no pericardial effusion. LOFT PATTERNMAKER: Sheridan James RDCS
--- NOTE | 2018-06-04 14:02 | CT ---
EXAMINATION TYPE: CT ChestAbdPelvis wo con DATE OF EXAM: 06/04/2018 INDICATION: None COMPARISON: Fever of unknown origin CT DLP: 481.9 mGycm CONTRAST: Performed with Oral Contrast TECHNIQUE: Axial images at 5 mm thick sections. Reconstructed images in the coronal plane. Delayed images through the kidneys. FINDINGS: CT CHEST: Portion of the thyroid visualized is normal. No suspicious lung nodules or focal infiltrates are present. No enlarged mediastinal or hilar adenopathy is evident. The ascending aorta diameter at the level of the main pulmonary artery is 3.0 cm. The main pulmonary artery diameter at the bifurcation is 2.4 cm. Bilateral breast prostheses are present. CT ABDOMEN: Liver: Normal Spleen: Normal Pancreas: Normal Adrenal glands: The adrenal glands are normal. Gallbladder: Normal Kidneys: No masses are evident. No hydronephrosis is present. No cysts are present. There is subtl e increased density at the cortical medullary junction bilaterally. Some underlying medullary sponge kidney calcification may be present. Clinical correlation is recommended. Aorta: Normal Inferior vena cava: Normal. CT PELVIS: Loops of bowel within the abdomen and pelvis are normal. There are loops of bowel which are incom pletely distended or lack oral contrast limiting their evaluation. Appendix: Normal as visualized. Urinary bladder: Normal. Genitourinary structures: Uterus is normal. Adnexal regions are unremarkable. Osseous structures: No suspicious lytic or sclerotic lesions. IMPRESSIONS: 1. No suspicious etiology for fever of unknown origin. 2. Findings suggestive for some medullary sponge kidney present bilaterally.
--- NOTE | 2018-06-04 14:38 | P.CNPUL ---
History of Present Illness Consult date: 06/04/18 Requesting physician: Shane Jesus Chief complaint: Fever History of present illness: This a 47-year-old white female patient of Dr. Cesar, with no significant medical history other than hyperlipidemia and migraines. Patient presented to the emergency department on 06/03/2018 for evaluation of persistent intermittent fever, patient did have a mild cough, which was mostly dry, no significant phlegm production. No complaints of chest pain, or chest wall tenderness. She does have some nasal congestion, and has been bringing up some bloody colored nasal discharge. Patient has been having the intermittent persistent fever since January 2018, and was initially seen by her primary care physician with symptoms of upper respiratory infection and was treated mostly with antibiotics. However she did not improve, and patient continued with symptoms of cough, she was at times productive with yellow phlegm. He was seen again by her primary care physician and was given a Medrol Dosepak. Continues with persistent cough and intermittent low-grade fever. Chest x-ray was normal , although her initial chest x-ray questioned possibility of pneumonia. CT of the chest showed no evidence of active disease. She was then referred to Dr. Hammond for consultation. Patient denies any specific trigger factors for her cough, though it seemed to be worse at night. No history of asthma, patient is a lifetime nonsmoker. Patient did do a trial of Ventolin which did not seem to improve her symptoms whatsoever. No GERD or reflux. Her PFT in the office showed FEV1 of 2.34 L or 84% of predicted, normal PFT. Dr. Hammond recommended a trial of prednisone taper over 21 days starting at 30 mg, patient was really taking omeprazole on a regular basis, he was given a 10 day course of oral Levaquin. Patient completed her course of Levaquin, she was still on her last 4 days of prednisone taper, currently down to 5 mg daily. She states 3 days after she finished the Levaquin she started spiking fevers. She is experiencing night sweats, and at times a fever spikes she has severe body aches , has been taken Motrin with some relief. Denied any nausea or vomiting, no diarrhea, denied any weakness, no skin lesions or rashes, denied any weight loss , loss of appetite. Chest x-ray was completed in the emergency department on showing normal chest. Lab work showed leukocytosis, with white blood cell count of 35.7, hemoglobin was 14.2, d-dimer was elevated at 0.20, electrolytes and renal profile were within normal limits, lactic acid was 1.7, urinalysis was negative, RSV and influenza screen were negative. Amylase lipase were within normal limits, C-reactive protein was elevated at 151.6, rheumatoid factor was 11, and AMA screen was negative, ESR was 13. Cultures were ordered and sent, patient was given a liter bolus in the emergency department, she was started on empiric antibiotics in the form of Zosyn. She was febrile on presentation with a temp of 101.8F, was treated with Motrin. This morning she is afebrile, denies any complaints, no shortness of breath or chest pain, her cough is dry, occasional. Blood cultures are pending. Review of Systems All systems: negative Constitutional: Reports malaise, Reports sweats, Denies chills, Denies fever Eyes: denies blurred vision, denies pain Ears, nose, mouth and throat: Denies headache, Denies sore throat Cardiovascular: Denies chest pain, Denies shortness of breath Respiratory: Reports cough, Reports dyspnea Gastrointestinal: Denies abdominal pain, Denies diarrhea, Denies nausea, Denies vomiting Genitourinary: Denies dysuria, Denies hematuria Musculoskeletal: Denies myalgias Integumentary: Denies pruritus, Denies rash Neurological: Denies numbness, Denies weakness Psychiatric: Denies anxiety, Denies depression Endocrine: Denies fatigue, Denies weight change Past Medical History Additional Past Medical History / Comment(s): migraines History of Any Multi-Drug Resistant Organisms: None Reported Past Surgical History: Tonsillectomy Additional Past Surgical History / Comment(s): bladder sling, breast implants Past Psychological History: No Psychological Hx Reported Smoking Status: Never smoker Past Alcohol Use History: Occasional Past Drug Use History: None Reported - Past Family History Mother Family Medical History: Asthma, COPD Medications and Allergies Home Medications Medication Instructions Recorded Confirmed Type Acetaminophen [Tylenol Extra 500 mg PO Q6HR PRN 06/03/18 06/03/18 History Strength] Omeprazole 20 mg PO DAILY 06/03/18 06/03/18 History predniSONE 5 mg PO DAILY 06/03/18 06/03/18 History Allergies Allergy/AdvReac Type Severity Reaction Status Date / Time cephalexin [From Keflex] Allergy Rash/Hives Verified 06/03/18 19:06 codeine AdvReac Vomiting Verified 06/03/18 19:06 Physical Exam Vitals: Vital Signs Temp Pulse Pulse Resp BP BP Pulse Ox 06/04/18 07:00 98.7 F 83 16 101/67 92 L 06/04/18 03:30 16 06/03/18 23:55 18 06/03/18 23:40 98.8 F 93 18 121/74 94 L 06/03/18 23:04 98.6 F 88 18 114/68 96 06/03/18 21:56 100.1 F H 92 18 125/68 94 L 06/03/18 20:55 100.2 F H 103 H 18 102/58 93 L 06/03/18 19:45 101.8 F H 103 H 18 118/90 97 06/03/18 17:21 100 F H 118 H 16 139/86 97 Intake and Output 06/03/18 06/04/18 06/04/18 22:59 06:59 14:59 Other: Voiding Method Toilet Toilet Weight 61.235 kg GENERAL EXAM: Alert, pleasant, 47-year-old white female patient currently on room air, comfortable in no apparent distress. HEAD: Normocephalic/atraumatic. EYES: Normal reaction of pupils, equal size. Conjunctiva pink, sclera white. NOSE: Clear with pink turbinates. THROAT: No erythema or exudates. NECK: No masses, no JVD, no thyroid enlargement, no adenopathy. CHEST: No chest wall deformity. Symmetrical expansion. LUNGS: Equal air entry with no crackles, wheeze, rhonchi or dullness. CVS: Regular rate and rhythm, normal S1 and S2, no gallops, no murmurs, no rubs ABDOMEN: Soft, nontender. No hepatosplenomegaly, normal bowel sounds, no guarding or rigidity. EXTREMITIES: No clubbing, no edema, no cyanosis, 2+ pulses and upper and lower extremities. MUSCULOSKELETAL: Muscle strength and tone normal. SPINE: No scoliosis or deformity SKIN: No rashes CENTRAL NERVOUS SYSTEM: Alert and oriented -3. No focal deficits, tone is normal in all 4 extremities. PSYCHIATRIC: Alert and oriented -3. Appropriate affect. Intact judgment and insight. Results - Laboratory Findings CBC and BMP: 06/03/18 19:37 06/03/18 19:37 PT/INR, D-dimer D-Dimer 0.20 mg/L FEU (<0.60) 06/03/18 19:37 Abnormal lab findings: Abnormal Labs 06/03/18 06/03/18 06/04/18 19:37 19:37 06:55 WBC 35.7 H Neutrophils # (Manual) 29.60 H Monocytes # (Manual) 2.86 H C-Reactive Protein 151.6 H Urine Appearance Cloudy H Urine Mucus Rare H - Diagnostic Findings Chest x-ray: report reviewed, image reviewed Assessment and Plan Plan: Assessment: #1. Persistent fever, chest x-ray was negative, CT chest/abdomen/pelvis showed no suspicious lung nodules or focal infiltrates, no suspicious etiology for fever. Brain CT was negative. Patient has been having intermittent fever since January 2018, with no improvement after antibiotics and prednisone #2. Leukocytosis #3. Chronic cough, likely postviral #4. Seasonal ALLERGIC rhinitis #5. GERD without esophagitis, on omeprazole #6. Migraine headaches #7. Lifetime nonsmoker Plan: We'll continue empiric antibiotics, blood cultures pending, echocardiogram, CT brain, chest, abdomen and pelvis did not show etiology for fever. Chest x-ray did not show any acute pulmonary process. No shortness of breath or chest pain. Fairly comfortable right now. Infectious disease consult is pending, patient may need medical oncology consult and for possibility of bone marrow biopsy. I performed a history & physical examination of the patient and discussed their management with my nurse practitioner, Trish Rausch. I reviewed the nurse practitioner's note and agree with the documented findings and plan of care. Lung sounds are positive for clear breath sounds. The findings and the impression was discussed with the patient. I attest to the documentation by the nurse practitioner. Time with Patient: Greater than 30
--- NOTE | 2018-06-04 19:12 | P.CON ---
Consult Note - . Consult date: 06/04/18 Assessment/Plan:: This is a 47-year-old female gives history of starting a and January 2018 at which time she had a dry nonproductive cough body aches and joint aches and fever. There was concern for pneumonia although she states the x-ray was negative and she was placed on doxycycline which she completed at that time and her symptoms resolved. Since then, she has had a fever about every other week and takes Motrin and Tylenol for the fever and it usually resolves within a day. If she does not take Motrin or Tylenol the fever persists. She recently saw Dr. Jesus about 3 weeks ago and was placed on Levaquin which she finished and then developed 3-4 days after symptoms returned. She was also on a steroid taper for 20 days. 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 She did travel to [place] last June but otherwise no significant travel. They have a dog and 2 cats in the home. She gardens in the summer otherwise no unusual hobbies. No other animal exposures. She denies any sick contacts. Patient came into the [facility] emergency center where she was found to have a temperature of 101.8 and white count 35.7, creatinine 0.68. ESR 13, d-dimer 0.2, C-reactive protein 151.6. Urinalysis was negative for infection, influenza testing negative, RSV negative , chest x-ray and normal. In the ER, patient was given Tylenol, Motrin, 1 L of IV fluids and started on Zosyn and admitted to the [facility] floor. Patient states that she has been feeling better today from yesterday and she has been afebrile since 2300 last night. The following tests are pending: Echocardiogram , CT of the brain, CT of the chest abdomen and pelvis, JOSE, P-ANCA and C-ANCA, Lyme, rheumatoid factor, urine culture. Blood culture has status receded. Sputum cultures are obtained due to lack of sputum production. Please see the consult note is dictated by nurse practitioner Mrs. Madison Posada. 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 Treated with several courses of antibiotic therapy to include doxycycline and more recently Levaquin. His also been treated with steroids manages been completing a steroid taper. With after her last course of antibiotic therapy she thought she was resolved and that her fevers chills rigors and night sweats at all completely resolved when she started feels somewhat better. However she again has had the significant onset of fever of 102 chills, rigors, sweats and feeling very weak and poorly. Given the recurrent nature of her fevers and symptoms infectious diseases consult was requested. The patient has had a computed tomography scan of the chest abdomen pelvis performed were waiting the final results. Computed tomography scan of her brain is without significant abnormalities. Blood work shows evidence of the leukocytosis without significant abnormalities to the differential. Exam failed to reveal evidence of lymphadenopathy, rash, telangiectasia or flank tenderness. The patient's CRP was noted to be markedly elevated. Concerns would be to a deep-seated underlying infection, with a normal sed rate would be very concerning to an underlying inflammatory condition. Autoimmune workup has been negative so far. Requested thyroid testing, I will ask for a random cortisol in the morning with concerns potential adrenal insufficiency. She is currently hemodynamically stable, multiple cultures are pending and look forward to results of the CAT scan and cultures to further direct workup treatments and potential need for antibiotic therapy which should be held at this time. I agree with evaluation, assessment and plan is dictated by nurse practitioner Mrs. Madison Posada.
--- NOTE | 2018-06-04 20:57 | PN ---
PROGRESS NOTE DATE OF SERVICE: 06/04/2018 This 47-year-old woman who was admitted with fever of undetermined origin is being closely monitored at this time. The white count is still elevated. Patient also had recent empiric steroids. The basic rheumatology screen is negative at this time. C- reactive protein is 151.6. Infectious Disease is following the patient closely. The cultures are pending at this time. CT scan of the chest, abdomen, pelvis and brain was done which showed no new findings except possible medullary sponge kidney bilaterally. On exam, alert and oriented x3. Pulse is 103, blood pressure 122/77, respirations 15, temperature 99.4, pulse ox 95% on room air. HEENT: Conjunctivae normal. NECK: No jugular venous distention. CARDIOVASCULAR SYSTEM: S1, S2 muffled. RESPIRATORY SYSTEM: Breath sounds diminished at the bases. No rhonchi. No crackles. ABDOMEN: Soft, non-tender. LEGS: No edema. No swelling. NERVOUS SYSTEM: No focal deficit. Labs show WBC of 35.7. Other labs noted. ASSESSMENT: 1. Nausea for evaluation. 2. Elevated CRP. 3. Increased white count, possibly reactive to steroids. 4. History of migraines. 5. History of bladder sling. 6. Possible bilateral medullary sponge kidneys. 7. FULL CODE. RECOMMENDATIONS AND DISCUSSION: In this 47-year-old woman who presented with multiple medical issues, we will monitor the patient closely, await cultures. Symptomatic treatment. Closely follow with Infectious Disease. A 2D echo was also ordered which showed ejection fraction 60% to 65% and trace mitral regurgitation and trace tricuspid regurgitation; no other findings. We will continue to monitor. Further recommendations to follow. MMODL / IJN: [id number] /
[2018-06-05] MEDS: SODIUM CHLORIDE 0.9% 1,000 ML IV SCH ×2 (04:02→11:57)
[2018-06-05] MEDS: PANTOPRAZOLE 40 MG TABLET PO SCH (08:08)
[2018-06-05 08:56] LABS: Basophils % (A) 1 %; Eosinophils # (A) 0.3 k/uL (0-0.7); Eosinophils % (A) 4 %; HCT 38.9 % (34.0-46.0); HGB 12.8 gm/dL (11.4-16.0); Lymphocytes # (A) 1.3 k/uL (1.0-4.8); Lymphocytes % (A) 18 %; MCHC 32.8 g/dL (31.0-37.0); MCV 94.4 fL (80.0-100.0); Mean Platelet Volume 7.4; Monocytes # (A) 0.3 k/uL (0-1.0); Monocytes % (A) 5 %; Neutrophils # (A) 5.2 k/uL (1.3-7.7); Neutrophils % (A) 71 %; Platelet Count 296 k/uL (150-450); RBC 4.12 m/uL (3.80-5.40); RDW 13.7 % (11.5-15.5); WBC 7.3 k/uL (3.8-10.6)
[2018-06-05 09:14] LABS: Anion Gap 6 mmol/L; Blood Urea Nitrogen 6 mg/dL (7-17); Calcium 9.3 mg/dL (8.4-10.2); Carbon Dioxide 27 mmol/L (22-30); Chloride 108 mmol/L (98-107); Glucose 133 mg/dL (74-99); Magnesium 1.9 mg/dL (1.6-2.3); Potassium 4.2 mmol/L (3.5-5.1); Sodium 141 mmol/L (137-145)
[2018-06-05 09:44] LABS: Protein, Total 7.2 g/dL (6.2-8.2)
--- NOTE | 2018-06-05 14:22 | P.PN ---
Subjective Progress Note Date: 06/05/18 Principal diagnosis: Persistent fever. This a 47-year-old white female patient of Dr. Cesar, with no significant medical history other than hyperlipidemia and migraines. Patient presented to the emergency department on 06/03/2018 for evaluation of persistent intermittent fever, patient did have a mild cough, which was mostly dry, no significant phlegm production. No complaints of chest pain, or chest wall tenderness. She does have some nasal congestion, and has been bringing up some bloody colored nasal discharge. Patient has been having the intermittent persistent fever since January 2018, and was initially seen by her primary care physician with symptoms of upper respiratory infection and was treated mostly with antibiotics. However she did not improve, and patient continued with symptoms of cough, she was at times productive with yellow phlegm. He was seen again by her primary care physician and was given a Medrol Dosepak. Continues with persistent cough and intermittent low-grade fever. Chest x-ray was normal , although her initial chest x-ray questioned possibility of pneumonia. CT of the chest showed no evidence of active disease. She was then referred to Dr. Hammond for consultation. Patient denies any specific trigger factors for her cough, though it seemed to be worse at night. No history of asthma, patient is a lifetime nonsmoker. Patient did do a trial of Ventolin which did not seem to improve her symptoms whatsoever. No GERD or reflux. Her PFT in the office showed FEV1 of 2.34 L or 84% of predicted, normal PFT. Dr. Hammond recommended a trial of prednisone taper over 21 days starting at 30 mg, patient was really taking omeprazole on a regular basis, he was given a 10 day course of oral Levaquin. Patient completed her course of Levaquin, she was still on her last 4 days of prednisone taper, currently down to 5 mg daily. She states 3 days after she finished the Levaquin she started spiking fevers. She is experiencing night sweats, and at times a fever spikes she has severe body aches , has been taken Motrin with some relief. Denied any nausea or vomiting, no diarrhea, denied any weakness, no skin lesions or rashes, denied any weight loss , loss of appetite. Chest x-ray was completed in the emergency department on showing normal chest. Lab work showed leukocytosis, with white blood cell count of 35.7, hemoglobin was 14.2, d-dimer was elevated at 0.20, electrolytes and renal profile were within normal limits, lactic acid was 1.7, urinalysis was negative, RSV and influenza screen were negative. Amylase lipase were within normal limits, C-reactive protein was elevated at 151.6, rheumatoid factor was 11, and AMA screen was negative, ESR was 13. Cultures were ordered and sent, patient was given a liter bolus in the emergency department, she was started on empiric antibiotics in the form of Zosyn. She was febrile on presentation with a temp of 101.8F, was treated with Motrin. This morning she is afebrile, denies any complaints, no shortness of breath or chest pain, her cough is dry, occasional. Blood cultures are pending. Patient was seen today 06/05/2018 in follow-up on the regular medical floor. She is awake and alert in no acute distress. She denies any shortness of breath , cough or congestion. Maintaining good O2 saturations in the 90s on room air. She's currently afebrile. Last temp at 2399.1. Her white count has recovered. Currently at 7.3. JOSE screen negative. Rheumatoid factor XI. Lyme disease negative. Influenza screen negative. RSV negative. ID is on the case. Objective - Vital Signs Vital signs: Vital Signs Temp 98.4 F 06/05/18 07:00 Pulse 76 06/05/18 07:00 Resp 12 06/05/18 07:00 BP 108/66 06/05/18 07:00 Pulse Ox 97 06/05/18 07:00 Intake & Output 06/04/18 06/05/18 06/05/18 18:59 06:59 18:59 Intake Total 1000 Output Total 200 Balance -200 1000 Intake: Intake, IV Titration 1000 Amount Sodium Chloride 0.9% 1, 1000 000 ml @ 100 mls/hr IV . Q10H OBDULIO Rx#:[id number] Output: Urine 200 Other: Voiding Method Toilet Toilet Toilet # Voids 1 1 - Exam GENERAL EXAM: Alert, active, comfortable in no apparent distress. On room air. HEAD: Normocephalic. EYES: Normal reaction of pupils, equal size. NOSE: Clear with pink turbinates. THROAT: No erythema or exudates. NECK: No masses, no JVD. CHEST: No chest wall deformity. LUNGS: Equal air entry with no crackles, wheeze, rhonchi or dullness. CVS: S1 and S2 normal with no audible murmur, regular rhythm. ABDOMEN: No hepatosplenomegaly, normal bowel sounds, no guarding or rigidity. SPINE: No scoliosis or deformity SKIN: No rashes CENTRAL NERVOUS SYSTEM: No focal deficits, tone is normal in all 4 extremities. EXTREMITIES: There is no peripheral edema. No clubbing, no cyanosis. Peripheral pulses are intact. - Labs CBC & Chem 7: 06/05/18 08:27 06/05/18 08:27 Labs: Abnormal Lab Results - Last 24 Hours (Table) 06/05/18 Range/Units 08:27 Chloride 108 H (98-107) mmol/L BUN 6 L (7-17) mg/dL Glucose 133 H (74-99) mg/dL Microbiology - Last 24 Hours (Table) 06/04/18 05:00 Urine Culture - Final Urine,Voided 06/03/18 19:37 Blood Culture - Preliminary Blood No Growth after 24 hours Assessment and Plan Assessment: Assessment: #1. Persistent fever of unknown origin, chest x-ray was negative, CT chest/ abdomen/pelvis showed no suspicious lung nodules or focal infiltrates, no suspicious etiology for fever. Brain CT was negative. Patient has been having intermittent fever since January 2018, with no improvement after antibiotics and prednisone #2. Leukocytosis, recovered, white count 7.3. #3. Chronic cough, likely postviral #4. Seasonal ALLERGIC rhinitis #5. GERD without esophagitis, on omeprazole #6. Migraine headaches #7. Lifetime nonsmoker Plan: The patient was seen and evaluated by Dr. Jesus. He is stable from the pulmonary standpoint. Maintaining O2 saturations in the mid 90s on room air. Currently afebrile. Last evening 99.1. ID is on the case. I, the cosigning physician, performed a history & physical examination of the patient. Lungs sounds are clear. Maintaining good O2 saturations in the 90s on room air. I discussed the assessment and plan of care with my nurse practitioner, Geetha Dos Santos. I attest to the above note as dictated by her.
--- NOTE | 2018-06-05 19:10 | PN ---
PROGRESS NOTE DATE OF SERVICE: 06/05/2018 This 47-year-old woman who was admitted with fever of undetermined etiology is being closely monitored. The basic initial labs are negative so far. No chest pain. No palpitations. No fever. EXAM: Alert and oriented x3. Please note the patient had outpatient antibiotics and steroids. Pulse 85. Blood pressure 115/80, respiration 12, temperature 98.6, pulse ox 94% on room air. HEENT: Conjunctivae normal. Oral mucosa moist. Neck is no jugular venous distention. No carotid bruit. No lymph node enlargement. CARDIOVASCULAR: S1, S2 muffled. RESPIRATORY: Breath sounds diminished in the bases. No rhonchi. No crackles. Abdomen is soft. Nervous system: No focal deficits. LABS: WBC 7.2, hemoglobin 12.8, sodium 141, potassium 4.2, and glucose 133. CRP is noted. ASSESSMENT: 1. Fever of undetermined origin for evaluation. 2. Elevated CRP. 3. Increased WBC possibly reactive to steroids. 4. History of migraines. 5. History of bladder sling. 6. Possible bilateral kidney in the CT scan. 7. FULL CODE. RECOMMENDATIONS AND DISCUSSION: I recommend to continue current medications, management. Symptomatic treatment. Otherwise, at this time, I recommend continue to monitor. Await cultures. CT scan noted. Guarded prognosis. Further recommendations to follow. MMODL / IJN: [id number] /
[2018-06-06] MEDS: SODIUM CHLORIDE 0.9% 1,000 ML IV SCH ×3 (05:30→19:58)
[2018-06-06 07:59] LABS: Basophils % (A) 1 %; Eosinophils # (A) 0.3 k/uL (0-0.7); Eosinophils % (A) 5 %; HCT 38.9 % (34.0-46.0); Lymphocytes # (A) 1.5 k/uL (1.0-4.8); Lymphocytes % (A) 24 %; MCH 31.3 pg (25.0-35.0); MCHC 33.4 g/dL (31.0-37.0); MCV 93.7 fL (80.0-100.0); Mean Platelet Volume 8.2; Monocytes # (A) 0.4 k/uL (0-1.0); Monocytes % (A) 7 %; Neutrophils # (A) 3.9 k/uL (1.3-7.7); Neutrophils % (A) 62 %; Platelet Count 326 k/uL (150-450); RBC 4.16 m/uL (3.80-5.40); RDW 13.7 % (11.5-15.5); WBC 6.2 k/uL (3.8-10.6)
[2018-06-06 08:16] LABS: Anion Gap 7 mmol/L; Blood Urea Nitrogen 10 mg/dL (7-17); Calcium 9.1 mg/dL (8.4-10.2); Carbon Dioxide 26 mmol/L (22-30); Chloride 109 mmol/L (98-107); Glucose 96 mg/dL (74-99); Potassium 4.4 mmol/L (3.5-5.1); Sodium 142 mmol/L (137-145)
[2018-06-06] MEDS: PANTOPRAZOLE 40 MG TABLET PO SCH (08:19)
--- NOTE | 2018-06-06 15:35 | P.PN ---
Subjective Progress Note Date: 06/06/18 Principal diagnosis: Fever of unknown origin This a 47-year-old white female patient of Dr. Cesar, with no significant medical history other than hyperlipidemia and migraines. Patient presented to the emergency department on 06/03/2018 for evaluation of persistent intermittent fever, patient did have a mild cough, which was mostly dry, no significant phlegm production. No complaints of chest pain, or chest wall tenderness. She does have some nasal congestion, and has been bringing up some bloody colored nasal discharge. Patient has been having the intermittent persistent fever since January 2018, and was initially seen by her primary care physician with symptoms of upper respiratory infection and was treated mostly with antibiotics. However she did not improve, and patient continued with symptoms of cough, she was at times productive with yellow phlegm. He was seen again by her primary care physician and was given a Medrol Dosepak. Continues with persistent cough and intermittent low-grade fever. Chest x-ray was normal , although her initial chest x-ray questioned possibility of pneumonia. CT of the chest showed no evidence of active disease. She was then referred to Dr. Hammond for consultation. Patient denies any specific trigger factors for her cough, though it seemed to be worse at night. No history of asthma, patient is a lifetime nonsmoker. Patient did do a trial of Ventolin which did not seem to improve her symptoms whatsoever. No GERD or reflux. Her PFT in the office showed FEV1 of 2.34 L or 84% of predicted, normal PFT. Dr. Hammond recommended a trial of prednisone taper over 21 days starting at 30 mg, patient was really taking omeprazole on a regular basis, he was given a 10 day course of oral Levaquin. Patient completed her course of Levaquin, she was still on her last 4 days of prednisone taper, currently down to 5 mg daily. She states 3 days after she finished the Levaquin she started spiking fevers. She is experiencing night sweats, and at times a fever spikes she has severe body aches , has been taken Motrin with some relief. Denied any nausea or vomiting, no diarrhea, denied any weakness, no skin lesions or rashes, denied any weight loss , loss of appetite. Chest x-ray was completed in the emergency department on showing normal chest. Lab work showed leukocytosis, with white blood cell count of 35.7, hemoglobin was 14.2, d-dimer was elevated at 0.20, electrolytes and renal profile were within normal limits, lactic acid was 1.7, urinalysis was negative, RSV and influenza screen were negative. Amylase lipase were within normal limits, C-reactive protein was elevated at 151.6, rheumatoid factor was 11, and AMA screen was negative, ESR was 13. Cultures were ordered and sent, patient was given a liter bolus in the emergency department, she was started on empiric antibiotics in the form of Zosyn. She was febrile on presentation with a temp of 101.8F, was treated with Motrin. This morning she is afebrile, denies any complaints, no shortness of breath or chest pain, her cough is dry, occasional. Blood cultures are pending. Patient was seen today 06/05/2018 in follow-up on the regular medical floor. She is awake and alert in no acute distress. She denies any shortness of breath , cough or congestion. Maintaining good O2 saturations in the 90s on room air. She's currently afebrile. Last temp at 2399.1. Her white count has recovered. Currently at 7.3. JOSE screen negative. Rheumatoid factor XI. Lyme disease negative. Influenza screen negative. RSV negative. ID is on the case. Patient was reevaluated today on 06/06/2018, basically about the same, experiencing again low-grade fever, her T-max today is 99.1. Denies any other symptoms except for occasional cough, cough was productive earlier today, and she was able to give a sputum sample. Blood cultures are negative so far since admission, urine culture is showing no growth so far in the last 18 hours. CBC is relatively unremarkable, her WBC count today is 6.2 hemoglobin is 13 basic metabolic profile is normal. As a matter of fact the only abnormality noted was the fact that she had elevated CRP of 151.6 on admission, and she had leukocytosis with WBC count of 35,000 admission. Otherwise all the workup so far seems to be negative. Computed tomography scan of the chest abdomen and pelvis was also negative. Echocardiogram was negative. Chest x-ray was negative. Connective tissue disease workup was negative. She is presently off all antibiotics. Objective - Vital Signs Vital signs: Vital Signs Temp 99.1 F 06/06/18 15:00 Pulse 100 06/06/18 15:00 Resp 12 06/06/18 15:00 BP 134/81 06/06/18 15:00 Pulse Ox 95 06/06/18 15:00 Intake & Output 06/05/18 06/06/18 06/06/18 18:59 06:59 18:59 Intake Total 400 Balance 400 Intake: Intake, IV Titration 400 Amount Sodium Chloride 0.9% 1, 400 000 ml @ 50 mls/hr IV . Q20H OBDULIO Rx#:[id number] Other: Voiding Method Toilet # Voids 1 1 2 - Exam Physical Exam: Revealed 47-year-old female in no distress. Very pleasant. On room air. Head: Atraumatic, normocephalic. HEENT:[Neck is supple.] [No neck masses.] [No thyromegaly.] [No JVD.] No tenderness over the maxillary sinuses, PERRLA, EOMI, neck supple, moist mucous membranes Chest: [Clear throughout, no crackles, no rhonchi, no wheezes.] Cardiac Exam: [Normal S1 and S2, no S3 gallop, no murmur.] Abdomen: [Soft, nontender, no megaly, no rebound, no guarding, normal bowel sounds.] Extremities: [No clubbing, no edema, no cyanosis.] Neurological Exam: [No focal neurologic deficit.] Alert oriented 3. Psychiatric: Normal mood, affect and mental status examination. Skin: No rashes. Lymphatics: No palpable lymphadenopathy. - Labs CBC & Chem 7: 06/06/18 07:06 06/06/18 07:06 Labs: Abnormal Lab Results - Last 24 Hours (Table) 06/06/18 Range/Units 07:06 Chloride 109 H (98-107) mmol/L Microbiology - Last 24 Hours (Table) 06/03/18 19:37 Blood Culture - Preliminary Blood No Growth after 48 hours 06/04/18 05:00 Urine Culture - Final Urine,Voided Assessment and Plan Assessment: Impression: 1 fever of unknown origin, although workup we have done so far seems to be nondiagnostic, the only abnormal test was the fact that she had elevated CRP. And she had one episode of leukocytosis on admission. Otherwise the rest of the workup has been negative. 2 chronic cough but relatively normal chest x-ray and CT of the chest, may or may not require bronchoscopy and lavage, I believe the diagnostic yield is minimal from bronchoscopy at this point. 3 seasonal ALLERGIC rhinitis 4 GERD without esophagitis Recommendation: Continue present treatment plan, antibiotics remain on hold, Dr. Hewitt is to reevaluate the patient and recommend further diagnostic workup. At this point is not quite clear why this patient is still having intermittent episodes of fever since January of 2018. Some of the diagnostic workup we have ordered is still pending. Time with Patient: Less than 30
--- NOTE | 2018-06-06 16:50 | PN ---
PROGRESS NOTE DATE OF SERVICE: 06/06/2018 This 47-year-old woman was admitted with fever of undetermined etiology is being closely monitored. The patient only had mild fever of 99.1. The patient closely monitored. The cultures are negative so far. No chest pain. No palpitations. No fever. EXAM: Alert and oriented x3. Pulse is 81, blood pressure 116/75, respiratory 12, temperature 98.2, pulse ox 98% on room air. HEENT: Conjunctivae normal. NECK: No jugular venous distention. CARDIOVASCULAR: S1, S2. RESPIRATORY: Breath sounds diminished in the bases. A few scattered rhonchi. ABDOMEN: Soft, nontender. LEGS: No edema. NERVOUS SYSTEM: No focal deficits. LABS: CBC within normal. Sodium 140, potassium 4.4. ASSESSMENT: 1. Fever of undetermined origin for evaluation. 2. Elevated CRP. 3. Increased WBC possibly reactive to steroids. 4. History of migraine. 5. History of bladder sling. 6. Possible bilateral medullary sponge kidney in the CT scan. RECOMMENDATIONS AND DISCUSSION: I recommend to continue current management, continue with monitoring and symptomatic treatment. Otherwise at this time I will repeat CRP. Closely follow with Infectious Disease. Further recommendations to follow. This. MMODL / IJN: [id number] /
[2018-06-07] MEDS: PANTOPRAZOLE 40 MG TABLET PO SCH (07:24)
[2018-06-07 07:52] LABS: Basophils % (A) 1 %; Eosinophils # (A) 0.5 k/uL (0-0.7); Eosinophils % (A) 8 %; HCT 42.4 % (34.0-46.0); HGB 14.2 gm/dL (11.4-16.0); Lymphocytes # (A) 1.6 k/uL (1.0-4.8); Lymphocytes % (A) 26 %; MCH 31.2 pg (25.0-35.0); MCHC 33.4 g/dL (31.0-37.0); MCV 93.4 fL (80.0-100.0); Mean Platelet Volume 6.7; Monocytes # (A) 0.5 k/uL (0-1.0); Monocytes % (A) 9 %; Neutrophils # (A) 3.3 k/uL (1.3-7.7); Neutrophils % (A) 54 %; Platelet Count 374 k/uL (150-450); RBC 4.54 m/uL (3.80-5.40); RDW 13.6 % (11.5-15.5); WBC 6.2 k/uL (3.8-10.6)
[2018-06-07 07:53] LABS: Anion Gap 5 mmol/L; Blood Urea Nitrogen 10 mg/dL (7-17); Calcium 9.4 mg/dL (8.4-10.2); Carbon Dioxide 28 mmol/L (22-30); Chloride 107 mmol/L (98-107); Glucose 100 mg/dL (74-99); Potassium 4.5 mmol/L (3.5-5.1); Sodium 140 mmol/L (137-145)
[2018-06-07 08:57] LABS: C Reactive Protein 22.1 mg/L (<10.0)
[2018-06-07 11:43] LABS: Erythrocyte Sedimentation Rate 18 mm/hr (0-20)
[2018-06-07 12:55] LABS: Albumin 4.24 g/dL (3.80-4.90); Gamma Globulin 0.99 g/dL (0.70-1.50)
[2018-06-07 13:19] LABS: EBV-VCA (IgG) 0.8 AI
[2018-06-07 14:21] LABS: C-ANCA <1:20 Titer (<1:20); P-ANCA <1:20 Titer (<1:20)
[2018-06-07 15:56] VITALS: BP 121/84; PULSE 72; RESP 16; TEMP 98.8
--- NOTE | 2018-06-07 17:06 | P.PN ---
Subjective Progress Note Date: 06/07/18 This is a 47-year-old female gives history of starting a and January 2018 at which time she had a dry nonproductive cough body aches and joint aches and fever. There was concern for pneumonia although she states the x-ray was negative and she was placed on doxycycline which she completed at that time and her symptoms resolved. Since then, she has had a fever about every other week and takes Motrin and Tylenol for the fever and it usually resolves within a day. If she does not take Motrin or Tylenol the fever persists. She recently saw Dr. Aguilar about 3 weeks ago and was placed on Levaquin which she finished and then developed 3-4 days after symptoms returned. She was also on a steroid taper for 20 days. 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 She did travel to [place] last June but otherwise no significant travel. They have a dog and 2 cats in the home. She gardens in the summer otherwise no unusual hobbies. No other animal exposures. She denies any sick contacts. Patient came into the clinic in [facility] emergency center where she was found to have a temperature of 101.8 and white count 35.7, creatinine 0.68. ESR 13, d-dimer 0.2, C-reactive protein 151.6. Urinalysis was negative for infection, influenza testing negative, RSV negative , chest x-ray and normal. In the ER, patient was given Tylenol, Motrin, 1 L of IV fluids and started on Zosyn and [facility]. Patient states that she has been feeling better today from yesterday and she has been afebrile since 2300 last night. The following tests are pending: Echocardiogram , CT of the brain, CT of the chest abdomen and pelvis, JOSE, P-ANCA and C-ANCA, Lyme, rheumatoid factor, urine culture. Blood culture has status receded. Sputum cultures are obtained due to lack of sputum production. 06/07/2018 the patient is now feeling considerably better. She's had no further fever and no other significant new symptoms. Objective - Vital Signs Vital signs: Vital Signs Temp 98.8 F 06/07/18 15:04 Pulse 72 06/07/18 15:04 Resp 16 06/07/18 15:04 BP 121/84 06/07/18 15:04 Pulse Ox 96 06/07/18 15:04 Intake & Output 06/06/18 06/07/18 06/07/18 18:59 06:59 18:59 Intake Total 400 Balance 400 Intake: Intake, IV Titration 400 Amount Sodium Chloride 0.9% 1, 400 000 ml @ 50 mls/hr IV . Q20H [facility] Rx#:[id number] Other: Voiding Method Toilet # Voids 2 4 2 - Exam Gen: This is a 47-year-old female. She is resting in bed appears to be comfortable and in no acute distress. HEENT: Head is atraumatic, normocephalic. Pupils equal, round. Sclerae is anicteric. Conjunctiva pink. Mucous members of the mouth are moist. Oropharyngeal shows no erythema or edema. NECK: Supple. No JVD. No lymphadenopathy. No thyromegaly. LUNGS: Clear to auscultation. No wheezes or rhonchi. No intercostal retractions. HEART: Regular rate and rhythm. No murmur. ABDOMEN: Soft. Bowel sounds are present. No masses. No tenderness. EXTREMITIES: No pedal edema. No calf tenderness. Dorsalis pedis is +2 bilaterally. No rashes. NEUROLOGICAL: Patient is awake, alert and oriented x3. - Labs CBC & Chem 7: 06/07/18 07:19 06/07/18 07:19 Labs: Abnormal Lab Results - Last 24 Hours (Table) 06/03/18 06/07/18 Range/Units 19:37 07:19 Glucose 100 H (74-99) mg/dL C-Reactive Protein 22.1 H (<10.0) mg/L EBV EA IgG Ab Interp POSITIVE H (NEGATIVE) EBV Nuc Ag IgG Interp POSITIVE H (NEGATIVE) Microbiology - Last 24 Hours (Table) 06/05/18 Unknown Gram Stain - Preliminary Sputum Sputum Culture - Preliminary 06/03/18 19:37 Blood Culture - Preliminary Blood No Growth after 72 hours Laboratory Results WBC 6.2 k/uL (3.8-10.6) 06/07/18 07:19 RBC 4.54 m/uL (3.80-5.40) 06/07/18 07:19 Hgb 14.2 gm/dL (11.4-16.0) 06/07/18 07:19 Hct 42.4 % (34.0-46.0) 06/07/18 07:19 MCV 93.4 fL (80.0-100.0) 06/07/18 07:19 MCH 31.2 pg (25.0-35.0) 06/07/18 07:19 MCHC 33.4 g/dL (31.0-37.0) 06/07/18 07:19 RDW 13.6 % (11.5-15.5) 06/07/18 07:19 Plt Count 374 k/uL (150-450) 06/07/18 07:19 Neutrophils % 54 % 06/07/18 07:19 Neutrophils % (Manual) 78 % 06/03/18 19:37 Band Neutrophils % 5 % 06/03/18 19:37 Lymphocytes % 26 % 06/07/18 07:19 Lymphocytes % (Manual) 10 % 06/03/18 19:37 Monocytes % 9 % 06/07/18 07:19 Monocytes % (Manual) 8 % 06/03/18 19:37 Eosinophils % 8 % 06/07/18 07:19 Eosinophils % (Manual) 1 % 06/03/18 19:37 Basophils % 1 % 06/07/18 07:19 Neutrophils # 3.3 k/uL (1.3-7.7) 06/07/18 07:19 Neutrophils # (Manual) 29.60 k/uL (1.3-7.7) H 06/03/18 19:37 Lymphocytes # 1.6 k/uL (1.0-4.8) 06/07/18 07:19 Lymphocytes # (Manual) 3.57 k/uL (1.0-4.8) 06/03/18 19:37 Monocytes # 0.5 k/uL (0-1.0) 06/07/18 07:19 Monocytes # (Manual) 2.86 k/uL (0-1.0) H 06/03/18 19:37 Eosinophils # 0.5 k/uL (0-0.7) 06/07/18 07:19 Eosinophils # (Manual) 0.36 k/uL (0-0.7) 06/03/18 19:37 Basophils # 0.0 k/uL (0-0.2) 06/07/18 07:19 Nucleated RBCs 0 /100 WBC (0-0) 06/03/18 19:37 Manual Slide Review Performed 06/03/18 19:37 Toxic Granulation Present 06/03/18 19:37 Toxic Vacuolation Present 06/03/18 19:37 ESR 18 mm/hr (0-20) 06/07/18 07:19 D-Dimer 0.20 mg/L FEU (<0.60) 06/03/18 19:37 Sodium 140 mmol/L (137-145) 06/07/18 07:19 Potassium 4.5 mmol/L (3.5-5.1) 06/07/18 07:19 Chloride 107 mmol/L (98-107) 06/07/18 07:19 Carbon Dioxide 28 mmol/L (22-30) 06/07/18 07:19 Anion Gap 5 mmol/L 06/07/18 07:19 BUN 10 mg/dL (7-17) 06/07/18 07:19 Creatinine 0.69 mg/dL (0.52-1.04) 06/07/18 07:19 Est GFR (CKD-EPI)AfAm >90 (>60 ml/min/1.73 sqM) 06/07/18 07:19 Est GFR (CKD-EPI)NonAf >90 (>60 ml/min/1.73 sqM) 06/07/18 07:19 Glucose 100 mg/dL (74-99) H 06/07/18 07:19 Plasma Lactic Acid Renzo 1.0 mmol/L (0.7-2.0) 06/04/18 06:55 Calcium 9.4 mg/dL (8.4-10.2) 06/07/18 07:19 Magnesium 1.9 mg/dL (1.6-2.3) 06/05/18 08:27 Ferritin 116.2 ng/mL (10.0-291.0) 06/03/18 19:37 Total Bilirubin 1.3 mg/dL (0.2-1.3) 06/03/18 19:37 AST 27 U/L (14-36) 06/03/18 19:37 ALT 29 U/L (9-52) 06/03/18 19:37 Alkaline Phosphatase 90 U/L (38-126) 06/03/18 19:37 Lactate Dehydrogenase 356 U/L (313-618) 06/05/18 08:27 C-Reactive Protein 22.1 mg/L (<10.0) H 06/07/18 07:19 Total Protein 7.8 g/dL (6.3-8.2) 06/03/18 19:37 Total Protein (PEP) 7.2 g/dL (6.2-8.2) 06/03/18 19:37 Albumin 4.6 g/dL (3.5-5.0) 06/03/18 19:37 Albumin (PEP) 4.24 g/dL (3.80-4.90) 06/03/18 19:37 Ywklt-7-Pxdlelaow 0.36 g/dL (0.10-0.40) 06/03/18 19:37 Gechc-2-Ltjqrrfuj 0.76 g/dL (0.60-1.00) 06/03/18 19:37 Beta Globulins 0.85 g/dL (0.60-1.30) 06/03/18 19:37 Gamma Globulins 0.99 g/dL (0.70-1.50) 06/03/18 19:37 PEP Interpretation SEE NOTE 06/03/18 19:37 Amylase 49 U/L (30-110) 06/04/18 06:55 Lipase 170 U/L (23-300) 06/04/18 06:55 TSH 2.250 mIU/L (0.465-4.680) 06/04/18 06:55 Cortisol 9 ug/dL 06/05/18 08:27 Urine Color Light Yellow 06/04/18 05:00 Urine Appearance Clear (Clear) 06/04/18 05:00 Urine pH 7.0 (5.0-8.0) 06/04/18 05:00 Ur Specific [place] 1.006 (1.001-1.035) 06/04/18 05:00 Urine Protein Negative (Negative) 06/04/18 05:00 Urine Glucose (UA) Negative (Negative) 06/04/18 05:00 Urine Ketones Negative (Negative) 06/04/18 05:00 Urine Blood Negative (Negative) 06/04/18 05:00 Urine Nitrite Negative (Negative) 06/04/18 05:00 Urine Bilirubin Negative (Negative) 06/04/18 05:00 Urine Urobilinogen <2.0 mg/dL (<2.0) 06/04/18 05:00 Ur Leukocyte Esterase Negative (Negative) 06/04/18 05:00 Urine RBC 1 /hpf (0-5) 06/03/18 19:37 Ur Squamous Epith Cells <1 /hpf (0-4) 06/03/18 19:37 Urine Mucus Rare /hpf (None) H 06/03/18 19:37 Rheumatoid Factor 11 IU/mL (0-15) 06/04/18 06:55 JOSE Screen NEGATIVE (NEGATIVE) 06/04/18 06:55 c-ANCA <1:20 Titer (<1:20) 06/04/18 06:55 p-ANCA <1:20 Titer (<1:20) 06/04/18 06:55 Lyme Disease IgG/IgM 0.0 Index 06/04/18 06:55 Lyme Disease Interpret NEGATIVE (NEGATIVE) 06/04/18 06:55 EBV Capsid Ag IgG Ab 0.8 AI 06/03/18 19:37 EBV Capsid Ag IgG Intrp NEGATIVE (NEGATIVE) 06/03/18 19:37 EBV Capsid Ag IgM Ab 0.4 AI 06/03/18 19:37 EBV Capsid Ag IgM Intrp NEGATIVE (NEGATIVE) 06/03/18 19:37 EBV Early Antigen IgG 3.7 AI 06/03/18 19:37 EBV EA IgG Ab Interp POSITIVE (NEGATIVE) H 06/03/18 19:37 EBV Nuclear Ag IgG Ab >8.0 AI 06/03/18 19:37 EBV Nuc Ag IgG Interp POSITIVE (NEGATIVE) H 06/03/18 19:37 Influenza Type A RNA Not Detected (Not Detectd) 06/03/18 19:37 Influenza Type B (PCR) Not Detected (Not Detectd) 06/03/18 19:37 RSV (PCR) Negative (Negative) 06/03/18 20:15 Microbiology 06/05/18 Unknown Sputum Gram Stain - Preliminary 06/05/18 Unknown Sputum Sputum Culture - Preliminary 06/03/18 19:37 Blood Blood Culture - Preliminary No Growth after 72 hours 06/04/18 05:00 Urine,Voided Urine Culture - Final Computed tomography scan of the chest abdomen pelvis has been performed and other than medullary sponge kidney no other abnormalities were noted. Computed tomography scan of brain is normal. Assessment and Plan (1) Fever, unknown origin Narrative/Plan: 47-year-old woman presents to hospital with another bout of high-grade fevers chills feeling very poorly. Is noted she has had several bouts of these febrile illnesses: Over the last several months. Most recently was treated with a course of levofloxacin and thought that she was resolved. However several weeks after stopping the antibiotic she again had the high-grade fever and chills and has been admitted for evaluation of the FUO. As noted evaluations have been negative for any significant underlying infection, urine culture however was obtained several hours after she was given her first dose of antibiotic therapy. Now off of antibiotic therapy she has remained afebrile. Severe leukocytosis and likely was steroid-induced has resolved. Her markedly elevated CRP is also improved. CRP of greater than 100 is almost always related to underlying bacterial infection. The only area revealing evidence of potential abnormality is her kidney, with the medullary sponge kidney seen on imaging study. The patient as well as ready for discharge to home. Agree with this. Urinalysis and culture have been requested she has recurrence of fever. And after this does start she has been given a course of oral antibiotic with sulfa in direct to contact me at that time. If she continues to have ongoing difficulties a CT guided biopsy of her kidney is indicated since this is the most likely organ system causing her current difficulties. Evaluation so far have failed to reveal evidence of any other site of infection. And she is ready for discharge to home. Current Visit: Yes Status: Acute Code(s): R50.9 - FEVER, UNSPECIFIED SNOMED Code(s): 6682974 (2) Leukocytosis Current Visit: Yes Status: Acute Code(s): D72.829 - ELEVATED WHITE BLOOD CELL COUNT, UNSPECIFIED SNOMED Code(s): 590882307
--- NOTE | 2018-06-07 17:17 | PN ---
PROGRESS NOTE This patient is a 47-year-old female seen by my partner over the weekend. She has a history of fever of unknown origin. So far she has had a pretty extensive evaluation, and thus far, other than an elevated white count and elevated C-reactive protein , her evaluation has been essentially negative. The patient's lab data and x-ray data were reviewed today. I thought the patient might be better served at a tertiary care facility such as [facility] or [facility], where possibly a more extensive evaluation might be done. Anyway, I gave her my opinion about this. She does have a history of GERD and allergic rhinitis as well. The patient seems to do better on antibiotics, but as soon as the antibiotics are discontinued she starts having fever again. I told her the likely causes of this fever of unknown origin may relate to underlying malignancy such as lymphoma, occult connective tissue disease, or a deep- seated infection. Anyway, the patient currently feels reasonably well. Current vital signs are reviewed. Her temperature is 98.6 today. Earlier today it was 99 degrees. Heart rate 70, respiratory rate 12, blood pressure 120/77, mean of 91, room-air saturation 97%. She appears in no acute distress. HEENT examination is grossly unremarkable. Mucous membranes are moist. Neck is supple. Full range of motion. No adenopathy. Cardiovascular examination reveals regular rhythm and rate. Heart rate 70. S1 , S2 normal. Lungs reveal clear breath sounds. No wheezes or rhonchi. No crackles. Abdomen is soft. Bowel sounds are heard. Extremities are intact. No cyanosis, clubbing or edema. Skin without rash. Neurologic examination is brief but nonfocal. Microbiologic studies are thus far negative. Labs are reviewed. White count 6.2, hemoglobin 14.2, hematocrit 42.4, platelet count normal. Sodium, potassium, chloride normal. CO2 normal. Anion gap normal. BUN and creatinine were normal. The rest of her labs look okay. C-reactive protein was at 152 on 06/04 and now down to 22.1. Thyroid function is normal. Cortisol level is normal. Urine is negative. JOSE negative. Rheumatoid factor is normal and Lyme antibody testing is negative. Medications are reviewed. ASSESSMENT: 1. Fever of unknown origin, dating back to January 2018. Negative evaluation thus far. 2. History of seasonal allergic rhinitis. 3. History of gastroesophageal reflux disease without esophagitis. PLAN: I do recommend the patient maybe go elsewhere for an evaluation. I think [facility] would be ideal. [facility] or [facility] would also be ideal locations for the patient to go for a second opinion. Additional recommendations and suggestions are forthcoming. Culture data thus far negative. Radiologic data thus far negative. There has been a significant improvement in the white blood count and the C- reactive protein. Will follow as needed. MMODL / IJN: [id number] / MTDDave
--- NOTE | 2018-06-08 | DS ---
DISCHARGE SUMMARY DATE OF SERVICE: 06/07/2018 FINAL DIAGNOSES: 1. Fever of undetermined origin, improved. 2. Elevated CRP, improving. 3. Increased WBC possibly reactive to secondary to steroids. 4. History of migraines. 5. History of bladder sling. 6. Possible bilateral medullary sponge kidney in the CT scan. DISCHARGE DISPOSITION: The patient being discharged in stable condition with guarded prognosis after consultation with Infectious Disease. HISTORY OF PRESENT ILLNESS: This 47 -year-old woman with a past medical history of no sigificnat medical issues, admitted Brown fevers prior to admission. The patient empirically treated with steroids and antibiotic outpatient. Patient evaluated closely. The patient was seen by Dr. Jesus and Dr. Hewitt, Infectious Disease. C-reactive protein was 151, but improved to 22.1. ESR was only 13. Patient was initially febrile, but subsequently afebrile and basic labs including JOSE, rheumatoid factor, Lyme testing were negative. The Alexia Bar IgG was positive indicating all the prior infection and the patient being discharged in stable condition with guarded prognosis. The patient also had a CT scan of the abdomen and pelvis and brain CT scan also during the hospitalization. 2D echo Doppler did not show any acute abnormality. The cultures are negative so far. PHYSICAL EXAMINATION: On exam, vital signs are stable. Cardiovascular: S1, S2. Abdomen soft. CENTRAL NERVOUS SYSTEM: No focal deficits. DISCHARGE ADVICE AND MEDICATIONS: 1. Diet is cardiac diet. 2. Activity limited until followup. 3. Follow up with Dr. Cesar in 1-2 days. 4. Follow up with Infectious recommend. DISCHARGE MEDICATION: 1. Tylenol p.r.n. 2. Omeprazole 20 mg p.o. daily. 3. Bactrim DS 1 p.o. b.i.d. for 1 week per infection infectious disease. MMODL / IJN: [id number] /
== END 2018-06-07 16:30 | disposition home or self-care (01) | DRG 864 ==
LOC: EC 16:49 → 4SSUR 21:59
PROVIDERS: ADMIT Hospitalist; ATTEND Hospitalist
DX: R50.9 Fever, unspecified (principal); Q61.5 Medullary cystic kidney; D72.829 Elevated white blood cell count, unspecified; E78.5 Hyperlipidemia, unspecified; G43.909 Migraine, unspecified, not intractable, without status migrainosus; J30.2 Other seasonal allergic rhinitis; K21.9 Gastro-esophageal reflux disease without esophagitis; Z82.5 Family history of asthma and other chronic lower respiratory diseases; Z98.82 Breast implant status; T38.0X5A Adverse effect of glucocorticoids and synthetic analogues, initial encounter; Z79.52 Long term (current) use of systemic steroids; Z79.899 Other long term (current) drug therapy; Z88.1 Allergy status to other antibiotic agents; Z88.5 Allergy status to narcotic agent
CPT/HCPCS: 36415; 70450; 71046; 71250; 74176; 80048; 80053; 81001; 81003; 82150; 82533; 82595; 82728; 83605; 83615; 83690; 83735; 84165; 84443; 85025; 85379; 85652; 86038; 86140; 86255; 86431; 86618; 86663; 86664; 86665; 87040; 87070; 87086; 87205; 87502; 87634; 93005; 93306; 96361; 96365; 99285

== ENCOUNTER → 2018-07-14 | Outpatient (CLI) | payer OTHER ==
[2018-07-14 20:26] LABS: HIV 1 AB Non-Reactive (Non-Reactive); HIV AB P24 Non-Reactive (Non-Reactive); HIV P24 AG Non-Reactive (Non-Reactive)
== END | disposition home or self-care (01) ==
LOC: LABWHC1 12:50
PROVIDERS: ATTEND Internal Medicine Infectious Disease
DX: R50.9 Fever, unspecified (principal); J47.9 Bronchiectasis, uncomplicated
CPT/HCPCS: 36415; 82784; 87390

== ENCOUNTER → 2018-07-16 | Outpatient (CLI) | payer OTHER ==
--- NOTE | 2018-07-16 14:04 | CT ---
EXAMINATION TYPE: CT chest wo con DATE OF EXAM: 07/16/2018 COMPARISON: CT June 04, 2018 HISTORY: Fevers and cough on and off for 5+ months CT DLP: 188 mGycm. Automated Exposure Control for Dose Reduction was Utilized. TECHNIQUE: CT scan of the thorax is performed without IV contrast. High-resolution protocol with 1 m m sequences obtained at 10 mm intervals in supine and prone technique FINDINGS: LUNGS: New areas of groundglass opacity centrally in the right lower lobe with slight nodularity are identified. Mild peribronchial wall thickening at this level is present. No pleural effusion or pneum othorax is noted bilaterally. No suspicious peripheral reticulation or fibrosis. No bronchiectasis. MEDIASTINUM: Lack of IV contrast and technique is noted to limit evaluation for mediastinal and espec ially hilar adenopathy. There are no definitive greater than 1 cm hilar or mediastinal lymph nodes. Prominent but subcentimeter thoracic lymph nodes are redemonstrated. No cardiomegaly or pericardial e ffusion is seen. OTHER: Bilateral subpectoral breast implants are again seen. IMPRESSION: New patchy reticulonodular infiltrates central right lower lobe with mild peribronchial w all thickening suspicious for acute infectious process. No underlying pulmonary parenchymal disease p resent.
== END | disposition home or self-care (01) ==
LOC: RADCTMAIN 13:21
PROVIDERS: ATTEND Internal Medicine Infectious Disease
DX: J98.09 Other diseases of bronchus, not elsewhere classified (principal); R91.8 Other nonspecific abnormal finding of lung field
CPT/HCPCS: 71250

== ENCOUNTER → 2018-08-19 | Outpatient (CLI) | payer OTHER ==
[2018-08-20 00:20] LABS: Cat Epith & Dander IgE <0.10 kU/L; Dog Dander IgE <0.10 kU/L
[2018-08-20 00:22] LABS: Codfish IgE <0.10 kU/L; Egg White IgE <0.10 kU/L
[2018-08-20 00:23] LABS: Peanut IgE <0.10 kU/L; Shrimp IgE <0.10 kU/L; Soybean IgE <0.10 kU/L
[2018-08-20 00:24] LABS: Clam IgE <0.10 kU/L; Scallop IgE <0.10 kU/L; Walnut IgE (Food) <0.10 kU/L
[2018-08-20 00:29] LABS: Immunoglobulin E 5.67 IU/mL (0.00-114.00)
[2018-08-20 12:16] LABS: Alt. alternata IgE Class CLASS 0; Alternaria alternata IgE <0.35 kU/L (<0.35); Asperg. fumagatus IgE <0.35 kU/L (<0.35); Asperg. fumagatus IgE Class CLASS 0; Candida albicans IgE Class CLASS 0; Clad herbarum IgE <0.35 kU/L (<0.35); Mucor racemosus IgE <0.35 kU/L (<0.35); Mucor racemosus IgE Class CLASS 0; Penicillium chrysogenum IgE <0.35 kU/L (<0.35); Penicillium chrysogenum IgE Cl CLASS 0
[2018-08-20 12:24] LABS: Bermuda Grass IgE <0.35 kU/L (<0.35); Com. Pigweed IgE <0.35 kU/L (<0.35); Com. Pigweed IgE Class CLASS 0; English Plantain IgE Class CLASS 0; Goldenrod IgE <0.35 kU/L (<0.35); Goldenrod IgE Class CLASS 0; Lamb's Quarter IgE <0.35 kU/L (<0.35); Lamb's Quarter IgE Class CLASS 0; Meadow Fescue IgE <0.35 kU/L (<0.35); Meadow Fescue IgE Class CLASS 0; Meadow Grs (KY blue) IgE <0.35 kU/L (<0.35); Meadow Grs (KY blue) IgE Class CLASS 0; Mugwort IgE Class CLASS 0; Orchard Grass(Cocksfoot) IgE <0.35 kU/L (<0.35); Rye Grass IgE Class CLASS 0; Sheep Sorrel IgE <0.35 kU/L (<0.35); Sheep Sorrel IgE Class CLASS 0; Timothy Grass IgE <0.35 kU/L (<0.35); Vernal Grass IgE <0.35 kU/L (<0.35)
== END ==
LOC: LABWHC1 16:10
PROVIDERS: ATTEND Internal Medicine Infectious Disease
DX: J45.909 Unspecified asthma, uncomplicated (principal)
CPT/HCPCS: 36415; 82785; 86001; 86003; 86606; 86609

== ENCOUNTER → 2019-03-09 | Outpatient (CLI) | payer OTHER ==
[2019-03-09 16:35] LABS: Basophils # (A) 0.1 k/uL (0-0.2); Basophils % (A) 3 %; Eosinophils % (A) 1 %; HCT 46.4 % (34.0-46.0); HGB 15.2 gm/dL (11.4-16.0); Lymphocytes # (A) 0.6 k/uL (1.0-4.8); Lymphocytes % (A) 12 %; MCH 30.9 pg (25.0-35.0); MCHC 32.9 g/dL (31.0-37.0); Monocytes # (A) 0.3 k/uL (0-1.0); Monocytes % (A) 5 %; Neutrophils # (A) 4.2 k/uL (1.3-7.7); Neutrophils % (A) 78 %; Platelet Count 294 k/uL (150-450); RBC 4.93 m/uL (3.80-5.40); RDW 12.6 % (11.5-15.5); WBC 5.4 k/uL (3.8-10.6)
[2019-03-09 18:03] LABS: Erythrocyte Sedimentation Rate 18 mm/hr (0-20)
[2019-03-10 00:45] LABS: Albumin 4.6 g/dL (3.80-4.90); Albumin/Globulin Ratio 2.09 (1.60-3.17); BUN/Creat Ratio 13.75 Ratio (12.00-20.00); C Reactive Protein 5.7 mg/dL (0.0-0.8); Calcium 9.3 mg/dL (8.7-10.3); Globulin 2.2 g/dL (1.6-3.3); Non-African American GFR(CKD) 87.2 (60.0-200.0); Potassium 4.2 mmol/L (3.5-5.5); Total Bilirubin 0.5 mg/dL (0.3-1.2); Total Protein 6.8 g/dL (6.2-8.2)
== END | disposition home or self-care (01) ==
LOC: LABWHC1 16:00
PROVIDERS: ATTEND Nurse Practitioner Family
DX: R50.9 Fever, unspecified (principal)
CPT/HCPCS: 36415; 80053; 83605; 85025; 85652; 86140

== ENCOUNTER → 2019-06-23 | Outpatient (CLI) | payer OTHER ==
--- NOTE | 2019-06-27 09:09 | MM ---
Reason for exam: screening (asymptomatic). Last mammogram was performed 1 year and 2 months ago. History: Family history of breast cancer in 2 maternal cousins at age 48. Saline implants in both breasts, February 2006. Took hormonal contraceptives for 8 years beginning at age 16. Physical Findings: A clinical breast exam by your physician is recommended on an annual basis and results should be correlated with mammographic findings. MG 3D Screen Mammo Imp/Cad Bilateral CC, MLO, and ID view(s) were taken. XCCL view(s) were taken of the left breast. Prior study comparison: May 07, 2018, bilateral MG 3d screen mammo imp/cad. December 26, 2016, bilateral MG screening mammo implant/CAD. Bilateral breast prothesis. No significant changes when compared with prior studies. ASSESSMENT: Benign, BI-RAD 2 RECOMMENDATION: Routine screening mammogram of both breasts in 1 year.
== END | disposition home or self-care (01) ==
LOC: RADMAMWWP 13:24
PROVIDERS: ATTEND Obstetrics & Gynecology
DX: Z12.31 Encounter for screening mammogram for malignant neoplasm of breast (principal); Z98.82 Breast implant status
CPT/HCPCS: 77063; 77067

== ENCOUNTER → 2020-07-19 | Outpatient (CLI) | payer OTHER ==
--- NOTE | 2020-07-23 09:59 | MM ---
Reason for exam: screening (asymptomatic). Last mammogram was performed 1 year and 1 month ago. History: Patient is postmenopausal. Family history of breast cancer in 2 maternal cousins at age 48. Saline implants in both breasts, February 2006. Took hormonal contraceptives for 8 years beginning at age 16. Physical Findings: A clinical breast exam by your physician is recommended on an annual basis and results should be correlated with mammographic findings. MG 3D Screen Mammo Imp/Cad Bilateral CC and MLO view(s) were taken. Prior study comparison: June 23, 2019, bilateral MG 3d screen mammo imp/cad. May 07, 2018, bilateral MG 3d screen mammo imp/cad. There are scattered fibroglandular densities. Retropectoral saline implants. No significant changes when compared with prior studies. ASSESSMENT: Negative, BI-RAD 1 RECOMMENDATION: Routine screening mammogram of both breasts in 1 year.
== END | disposition home or self-care (01) ==
LOC: RADMAMWWP 11:00
PROVIDERS: ATTEND Obstetrics & Gynecology
DX: Z12.31 Encounter for screening mammogram for malignant neoplasm of breast (principal); Z78.0 Asymptomatic menopausal state
CPT/HCPCS: 77063; 77067

== ENCOUNTER → 2021-10-01 | Outpatient (CLI) | payer BC ==
--- NOTE | 2021-10-01 19:04 | BD ---
EXAMINATION TYPE: Axial Bone Density DATE OF EXAM: 10/01/2021 COMPARISON: NONE CLINICAL HISTORY: 50 years year old Female. ICD-10 CODE: Z78.0 post menopausal w/o HRT, N95.1 Post m enopausal symptom Height: 5 FT 2 1/2 IN Weight: 138 FRAX RISK QUESTIONS: Alcohol (3 or more units per day): NO Family History (Parent hip fracture): NO Glucocorticoids (More than 3mos): SYMBACORT ? (Ex: prednisone, prednisolone, methylprednisolone, dexamethasone, and hydrocortisone). History of Fracture in Adulthood: NO Secondary Osteoporosis: 1. Type 1 Diabetes: NO 2. Hyperthyroidism: NO 3. Menopause before 45: NO 4. Malnutrition: NO 5. Chronic liver disease: NO Rheumatoid Arthritis: NO Current Tobacco Use: NO RISK FACTORS HISTORY OF: Surgery to Spine/Hip(right/left)/Wrist (right/left): NO Family History of Osteoporosis: YES Active: YES Diet low in dairy products/other sources of calcium: NO Postmenopausal woman: YES Take estrogen and/or progesterone medications: NO Lost more than 2 inches in height since high school: NO Frequent falls: NO Poor Health: GOOD Hyperparathyroidism: NO Adrenal Insufficiency: SPONGEY KIDNEY MEDICATIONS: Additional Medications: SYMBICORT, SINGULAIR Additional History: EXAM MEASUREMENTS: Bone mineral densitometry was performed using the [employer] System. Bone mineral density as measured about the Lumbar spine is: ----- L1-L4(G/cm2): 0.957 T Score Values are as follows: ----- L1: -2.4 ----- L2: -2.2 ----- L3: -1.4 ----- L4: -1.7 ----- L1-L4: -1.9 BASELINE Bone mineral density about the R hip (g/cm2): 0.838 Bone mineral density about the L hip (g/cm2): 0.875 T Score values are as follows: -----R Neck: -1.4 -----L Neck: -1.2 -----R Total: -0.9 -----L Total: -0.3 BASELINE FRAX%s: The graph provided illustrates a 2.3 % chance for a major osteoporotic fx and a 0.3 % chance for the hips probability for fx in 10 years time. IMPRESSION: Osteopenia (T Score between -2.5 and -1). There is slightly increased risk of fracture and the patient may be considered for treatment. Re-Screen 2-5 years. NOTE: T-SCORE=SD OF THE YOUNG ADULT MEAN.
== END | disposition home or self-care (01) ==
LOC: RADBDWWP 15:24
PROVIDERS: ATTEND Obstetrics & Gynecology
DX: Z12.31 Encounter for screening mammogram for malignant neoplasm of breast (principal); N95.1 Menopausal and female climacteric states
CPT/HCPCS: 77063; 77067; 77080

== ENCOUNTER → 2022-10-03 | Outpatient (CLI) | payer BC ==
--- NOTE | 2022-10-06 09:25 | MM ---
Reason for Exam: Screening (asymptomatic). Last screening mammogram was performed 12 month(s) ago. Patient History: Menarche at age 12. First Full-Term at age 25. Postmenopausal. Hormonal Contraceptives for 8 years from age 16 until age 24. 02/2006, Bilateral Implants. Maternal cousin had breast cancer, age 48. Maternal cousin had breast cancer, age 48. Risk Values: Mary 5 year model risk: 1.1%. NCI Lifetime model risk: 9.7%. Prior Study Comparison: 06/23/2019 Bilateral Screening Mammogram, [facility]. 07/19/2020 Bilateral Screening Mammogram, [facility]. 10/01/2021 Bilateral MG 3D screen mammo imp/cad., [facility]. Tissue Density: The breast tissue is heterogeneously dense. This may lower the sensitivity of mammography. Findings: Analyzed By CAD. There is no suspicious group of microcalcifications or new suspicious mass in either breast. Bilateral breast implants are intact. Overall Assessment: Benign, BI-RAD 2 Management: Screening Mammogram of both breasts in 1 year. . Patient should continue monthly self-breast exams. A clinical breast exam by your physician is recommended on an annual basis. This exam should not preclude additional follow-up of suspicious palpable abnormalities. Note on Mary scores and lifetime risk: 1. A Mary score greater than 3% is considered moderate risk. If this is the case, consider specialist referral to assess eligibility for a risk reducing agent. 2. If overall lifetime risk for the development of breast cancer is 20% or higher, the patient may qualify for future screening with alternating mammogram and breast MRI. Electronically signed and approved by: Murray Cintron M.D. Radiologis
== END | disposition home or self-care (01) ==
LOC: RADMAMWWP 12:47
PROVIDERS: ATTEND Obstetrics & Gynecology
DX: Z12.31 Encounter for screening mammogram for malignant neoplasm of breast (principal); Z78.0 Asymptomatic menopausal state; Z80.3 Family history of malignant neoplasm of breast
CPT/HCPCS: 77063; 77067

== ENCOUNTER → 2022-10-08 | Outpatient (CLI) | payer BC ==
[2022-10-08 22:42] LABS: Chol/HDL Ratio 4.64 Ratio; LDL Cholesterol,Calculated 188.5 mg/dL (0.0-131.0); VLDL Calculation 19.38 mg/dL (5.00-40.00)
== END | disposition home or self-care (01) ==
LOC: LABWHC1 08:25
PROVIDERS: ATTEND Family Medicine
DX: E78.5 Hyperlipidemia, unspecified (principal)
CPT/HCPCS: 36415; 80061

== ENCOUNTER → 2023-10-12 | Outpatient (CLI) | payer BC ==
--- NOTE | 2023-10-13 18:23 | MM ---
Reason for Exam: Screening (asymptomatic). Last screening mammogram was performed 12 month(s) ago. Patient History: Menarche at age 12. First Full-Term at age 25. Postmenopausal. Hormonal Contraceptives for 8 years from age 16 until age 24. 02/2006, Bilateral Implants. Maternal cousin had breast cancer, age 48. Maternal cousin had breast cancer, age 48. Risk Values: Mary 5 year model risk: 1.2%. NCI Lifetime model risk: 9.6%. Prior Study Comparison: 07/19/2020 Bilateral Screening Mammogram, [facility]. 10/01/2021 Bilateral MG 3D screen mammo imp/cad., [facility]. 10/03/2022 Bilateral MG 3D screen mammo imp/cad., [facility]. Tissue Density: There are scattered areas of fibroglandular density. Findings: Analyzed By CAD. Bilateral retropectoral saline implants. There is no suspicious group of microcalcifications or new suspicious mass in either breast. Overall Assessment: Benign, BI-RAD 2 Management: Screening Mammogram of both breasts in 1 year. . Patient should continue monthly self-breast exams. A clinical breast exam by your physician is recommended on an annual basis. This exam should not preclude additional follow-up of suspicious palpable abnormalities. Note on Mary scores and lifetime risk: 1. A Mary score greater than 3% is considered moderate risk. If this is the case, consider specialist referral to assess eligibility for a risk reducing agent. 2. If overall lifetime risk for the development of breast cancer is 20% or higher, the patient may qualify for future screening with alternating mammogram and breast MRI. Electronically signed and approved by: Elliot Rodrigues M.D. Radiologist
== END | disposition home or self-care (01) ==
LOC: RADMAMWWP 15:19
PROVIDERS: ATTEND Family Medicine
DX: Z12.31 Encounter for screening mammogram for malignant neoplasm of breast (principal); Z78.0 Asymptomatic menopausal state; Z80.3 Family history of malignant neoplasm of breast; R92.323 Mammographic fibroglandular density, bilateral breasts
CPT/HCPCS: 77063; 77067

== ENCOUNTER → 2023-12-17 | Outpatient (CLI) | payer BC ==
[2023-12-17 15:57] LABS: Appearance,Urine Turbid (Clear); Bilirubin,Urine Negative (Negative); Blood,Urine Negative (Negative); Color,Urine Yellow (Yellow); Ketones,Urine 40 (Negative); Nitrite,Urine Negative (Negative); Specific Gravity,Urine 1.023 (1.001-1.030)
[2023-12-17 16:02] LABS: Bacteria,Urine None Seen (None Seen)
[2023-12-17 17:03] LABS: HCT 42.7 % (37.2-46.3); HGB 14.1 g/dL (12.0-15.0); MCH 30.9 pg (27.0-32.0); MCV 93.4 FL (80.0-97.0); Mean Platelet Volume 10.9 FL (9.5-12.2); NRBC Per 100 WBC 0 X 10*3/uL (0.00-0.01); Platelet Count 311 X 10*3/uL (140-440); RBC 4.57 X 10*6/uL (4.10-5.20); RDW 13.7 % (11.5-14.5); WBC 7.24 X 10*3/uL (4.50-10.00)
[2023-12-17 17:50] LABS: ALT 20 U/L (8-44); AST 16 U/L (13-35); Albumin 4.6 g/dL (3.8-4.9); Alkaline Phosphatase 77 U/L (41-126); BUN/Creat Ratio 16.29 Ratio (12.00-20.00); Blood Urea Nitrogen 11.4 mg/dL (9.0-27.0); Calcium 9.4 mg/dL (8.7-10.3); Carbon Dioxide 27.4 mmol/L (21.6-31.8); Chloride 103 mmol/L (96-109); Chol/HDL Ratio 5.33 Ratio; Globulin 2.3 g/dL (1.6-3.3); Glucose 90 mg/dL (70-110); LDL Cholesterol,Calculated 217.3 mg/dL (0.0-131.0); Potassium 4.3 mmol/L (3.5-5.5); Sodium 139 mmol/L (135-145); Total Bilirubin 0.7 mg/dL (0.3-1.2); Total Protein 6.9 g/dL (6.2-8.2)
== END ==
LOC: LABWHC1 09:42
PROVIDERS: ATTEND Family Medicine
DX: Z00.00 Encounter for general adult medical examination without abnormal findings
CPT/HCPCS: 36415; 80053; 80061; 81001; 82306; 83036; 85027

== ENCOUNTER → 2024-10-17 | Outpatient (CLI) | payer BC ==
--- NOTE | 2024-10-17 17:25 | MM ---
Reason for Exam: Screening (asymptomatic). Last screening mammogram was performed 12 month(s) ago. Patient History: Menarche at age 12. First Full-Term at age 25. Postmenopausal. Hormonal Contraceptives for 8 years from age 16 until age 24. 02/2006, Bilateral Implants. Maternal cousin had breast cancer, age 48. Maternal cousin had breast cancer, age 48. Risk Values: Mary 5 year model risk: 1.2%. NCI Lifetime model risk: 9.4%. Prior Study Comparison: 10/01/2021 Bilateral MG 3D screen mammo imp/cad., [facility]. 10/03/2022 Bilateral MG 3D screen mammo imp/cad., [facility]. 10/12/2023 Bilateral MG 3D screen mammo imp/cad., [facility]. Tissue Density: There are scattered areas of fibroglandular density. Findings: Analyzed By CAD. Bilateral retropectoral saline implants. There is no suspicious group of microcalcifications or new suspicious mass in either breast. Overall Assessment: Benign, BI-RAD 2 Management: Screening Mammogram of both breasts in 1 year. Patient should continue monthly self-breast exams. A clinical breast exam by your physician is recommended on an annual basis. This exam should not preclude additional follow-up of suspicious palpable abnormalities. Note on Mary scores and lifetime risk: 1. A Mary score greater than 3% is considered moderate risk. If this is the case, consider specialist referral to assess eligibility for a risk reducing agent. 2. If overall lifetime risk for the development of breast cancer is 20% or higher, the patient may qualify for future screening with alternating mammogram and breast MRI. [facility], , 10/17/2024 5:22 PM. Electronically signed and approved by: Elliot Rodrigues M.D. Radiologist
--- NOTE | 2024-10-17 21:06 | BD ---
EXAMINATION TYPE: Axial Bone Density DATE OF EXAM: 10/17/2024 CLINICAL HISTORY: 53 years old Female. ICD-10 CODE: Z78.0 Post gutierrez , Additional History: Height: 62.5 in Weight: 140 lbs HISTORY OF: History of Wrist Fracture: lt wrist age 12 MEDICATIONS: Osteoporosis Medications: not now Which medication: Fosamax How Lon year EXAM MEASUREMENTS: Bone mineral densitometry was performed using the [employer] System. Bone mineral density as measured about the Lumbar spine is: ----- L1-L4(G/cm2): 0.947 T Score Values are as follows: ----- L1: -2.8 ----- L2: -2.1 ----- L3: -1.6 ----- L4: -1.6 ----- L1-L4: -1.9 Z Score Values are as follows: ----- L1: -2.0 ----- L2: -1.4 ----- L3: -0.9 ----- L4: -0.8 ----- L1-L4: -1.2 Bone mineral density has: Decreased 1.0since study of: 10/01/2021 Bone mineral density about the R hip (g/cm2): 0.936 Bone mineral density about the L hip (g/cm2): 0.990 T Score values are as follows: -----R Neck: -1.2 -----L Neck: -1.1 -----R Total: -0.6 -----L Total: -0.1 Z Score values are as follows: -----R Neck: -0.2 -----L Neck: -0.1 -----R Total: 0.1 -----L Total: 0.5 Bone mineral density has: Increased 3.4since study of: IMPRESSION: Osteopenia (T Score between -2.5 and -1). There is slightly increased risk of fracture and the patient may be considered for treatment. Re-Screen 2-5 years. NOTE: T-SCORE=SD OF THE YOUNG ADULT MEAN. [facility], Workstation: [id number], 10/17/2024 9:04 PM
== END | disposition home or self-care (01) ==
LOC: RADBDWWP 12:39
PROVIDERS: ATTEND Obstetrics & Gynecology
DX: Z12.31 Encounter for screening mammogram for malignant neoplasm of breast (principal); M85.89 Other specified disorders of bone density and structure, multiple sites; R92.323 Mammographic fibroglandular density, bilateral breasts; Z98.82 Breast implant status; Z92.0 Personal history of contraception; Z78.0 Asymptomatic menopausal state; Z80.3 Family history of malignant neoplasm of breast
CPT/HCPCS: 77063; 77067; 77080